=== PATIENT | male | born 1950 | race Caucasian/White ===

== ENCOUNTER 2019-04-20 16:33 | Outpatient (CLI) | payer MEDICARE, SELFPAY ==
[2019-04-20 17:22] LABS: Basophils Percent Auto 0.8 % (0.2-1.2); Eosinophils Absolute Auto 0.2 K/mm3 (0-0.3); Eosinophils Percent Auto 3.1 % (0-4.4); Hematocrit 42.4 % (42.0-52.0); Hemoglobin 14.7 g/dL (14.0-18.0); Immature Granulocyte Absolute 0.02 K/mm3 (0.00-0.031); Immature Granulocyte Percent A 0.4 % (0-0.5); Lymphocytes Absolute Auto 1.54 K/mm3 (0.9-3.2); Lymphocytes Percent Auto 32.2 % (18.3-44.2); Mean Corpuscular HGB Conc 34.7 g/dl (32-36); Mean Corpuscular Hemoglobin 32.2 pg (26-34); Mean Corpuscular Volume 92.8 fl (80-100); Mean Platelet Volume 10.8 fl (7.4-10.4); Monocytes Absolute Auto 0.5 K/mm3 (0.1-0.6); Monocytes Percent Auto 10.4 % (2.6-8.5); Neutrophils Absolute Auto 2.5 K/mm3 (1.3-6.7); Neutrophils Percent Auto 53.1 % (45.5-73.1); Platelet Count Result 230 k/mm3 (150-375); Red Blood Count 4.57 M/mm3 (4.6-6.20); Red Cell Distribution Width 11.9 % (11.5-14.5); White Blood Count 4.8 K/mm3 (4.5-10.0)
[2019-04-20 17:31] LABS: Blood Urea Nitrogen 27 mg/dL (9-20); Calcium 9.1 mg/dL (8.4-10.2); Carbon Dioxide 30 mmol/L (22-30); Chloride 98 mmol/L (98-107); Estimated Glomerular Filt Rate 36; Glucose 112 mg/dL (75-110); Potassium 3.4 mmol/L (3.4-5.0); Sodium 136 mmol/L (137-145)
== END 2019-04-20 16:34 | disposition home or self-care (01) ==
PROVIDERS: PCP Family Medicine Adolescent Medicine; Visit Provider Internal Medicine Cardiovascular Disease
DX: Z01.818 Encounter for other preprocedural examination (principal)
CPT/HCPCS: 36415; 80048; 85025

== ENCOUNTER 2019-04-29 05:09 | Day surgery (SDC) | payer MEDICARE, SELFPAY ==
[2019-04-28 14:32] VITALS: BMI 32.8
[2019-04-29] VITALS (8 sets, daily range): BP systolic 114–157; BP diastolic 67–91; PULSE 63–82; RESP 14–18; TEMP 36.6–37; O2SAT 94–99
[2019-04-29 07:21] LABS: Basophils Absolute Auto 0.1 K/mm3 (0.0-0.1); Basophils Percent Auto 1.1 % (0.2-1.2); Eosinophils Absolute Auto 0.2 K/mm3 (0-0.3); Eosinophils Percent Auto 3.3 % (0-4.4); Hematocrit 45.8 % (42.0-52.0); Hemoglobin 15.9 g/dL (14.0-18.0); Immature Granulocyte Absolute 0.02 K/mm3 (0.00-0.031); Immature Granulocyte Percent A 0.4 % (0-0.5); Lymphocytes Absolute Auto 1.17 K/mm3 (0.9-3.2); Mean Corpuscular HGB Conc 34.7 g/dl (32-36); Mean Corpuscular Volume 92.2 fl (80-100); Mean Platelet Volume 10.9 fl (7.4-10.4); Monocytes Absolute Auto 0.5 K/mm3 (0.1-0.6); Monocytes Percent Auto 10.2 % (2.6-8.5); Neutrophils Absolute Auto 2.7 K/mm3 (1.3-6.7); Platelet Count Result 235 k/mm3 (150-375); Red Blood Count 4.97 M/mm3 (4.6-6.20); Red Cell Distribution Width 11.9 % (11.5-14.5); White Blood Count 4.5 K/mm3 (4.5-10.0)
[2019-04-29 07:33] LABS: Blood Urea Nitrogen 26 mg/dL (9-20); Calcium 9.5 mg/dL (8.4-10.2); Carbon Dioxide 30 mmol/L (22-30); Chloride 97 mmol/L (98-107); Estimated CRCL calculation 54 ml/min; Estimated Glomerular Filt Rate 43; Glucose 126 mg/dL (75-110); Potassium 3.5 mmol/L (3.4-5.0); Sodium 140 mmol/L (137-145)
--- NOTE | 2019-04-29 08:17 | P.SEDATION_ITS ---
Moderate Sedation Note-Pt Data Patient Data Allergies Allergy/AdvReac Type Severity Reaction Status Date / Time No Known Allergies Allergy Unverified 02/23/19 15:10 Current Medications: Active Medications Sodium Chloride (Normal Saline Iv) 500 mls @ 125 mls/hr IV CONT .[facility] Sedation/Anesthesia: No previous sedation/anesthesia problems (including family history). [facility] Family History Family History Mother Diabetes mellitus Father Family history of malignant neoplasm Social History Social History Smoking status: Never smoker Alcohol intake: current Mod Sed Physical Exam Physical Exam Pre Procedural Exam: Normal: Appearance, Eyes, Ears, Nose, Neck, Throat, Airway, Lungs, Heart Size, Heart Rate, Heart Rhythm, Neuro Exam, Abdomen, Liver, Kidneys, Spleen, Breasts, Genitalia, Extremities and Skin Hours since solid foods: 8 Hours since liquid intake: 8 Internal Medicine - PN: Obj Da Vital Signs Vital Signs: Vital Signs - 24 hr 04/29/19 07:23 Temperature 37.0 C Pulse Rate 76 Respiratory Rate 18 Blood Pressure 157/91 H Pulse Oximetry 96 Meds/Results Medications: Active Medications Generic Name Dose Route Start Last Admin Trade Name Freq PRN Reason Stop Dose Admin Sodium Chloride 500 mls @ 125 mls/hr 04/29/19 06:00 Normal Saline Iv IV CONT .[facility] Labs CBC & Chem 7: 04/29/19 07:14 04/29/19 07:14 Labs: Laboratory Results - last 24 hr 04/29/19 04/29/19 07:14 07:14 WBC 4.5 RBC 4.97 Hgb 15.9 Hct 45.8 MCV 92.2 MCH 32.0 MCHC 34.7 RDW 11.9 Plt Count 235 MPV 10.9 H Immature Gran % (Auto) 0.4 Neut % (Auto) 59.0 Lymph % (Auto) 26.0 Reynolds % (Auto) 10.2 H Eos % (Auto) 3.3 Baso % (Auto) 1.1 Lymph # (Auto) 1.17 Reynolds # (Auto) 0.5 Eos # (Auto) 0.2 Baso # (Auto) 0.1 Abs Immat Gran (auto) 0.02 Absolute Neuts (auto) 2.7 Absolute Nucleated RBC 0.0 Nucleated RBC % 0.0 Sodium 140 Potassium 3.5 Chloride 97 L Carbon Dioxide 30 BUN 26 H Creatinine 1.60 H Estim Creat Clear Calc 54 Estimated GFR 43 L Glucose 126 H Calcium 9.5 ASA Classification/Sedation ASA Classification/Sedation ASA Class: I Emergent: No Risks: Risks, benefits and alternatives explained and patient/family accepted plan for sedation. Patient re-evaluated immediately prior to sedation.
--- NOTE | 2019-04-29 08:17 | WPDHPUPDATE1 ---
History and Physical Update Update Date/Time: 04/29/19 08:17 History and Physical has been reviewed, including an updated exam of the patient. There are NO changes in the patient's condition. Risks, benefits, and alternatives have been discussed and questions answered. Patient agrees to proceed with procedure.
--- NOTE | 2019-04-29 08:17 | WPDCARDPROC ---
Cardiac Cath Procedure Note Date of procedure:: 04/29/19 Performing physician:: Billie Ramirez MD Date of service 04/29/2019 Indication:: Abnormal stress test Brief clinical history:: This is 68 years old male patient who has been increasing Dizziness, dyspnea on exertion. Underwent stress echocardiogram shows basal inferior wall hypokinesis and equivocal EKG changes. Procedure Procedure performed:: 1-Moderate sedation that started at 8:40 a.m. and ended at 8:55 a.m. with total duration 15 minutes using 3mg of Versed and 75 mcg fentanyl. The registered nurse was Mimi Guerra. 2-Selective left and right coronary angiogram. 3-Left heart catheterization with measurement of LVEDP and measurement of gradient across aortic valve. 4-Right common femoral arterial angiogram. 5-Deployment of 6 [place] Angio-Seal. Sedation/Medication given:: Moderate sedation. Access site:: Right common femoral artery. Estimated blood loss:: 10cc Procedure note:: After informed consent patient was brought in to nursery laborer with the was draped and prepped in usual manner. Moderate sedation was given and the right groin was infiltrated using 1% lidocaine. Five [place] sheath was obtained using micropuncture needle and the modified Seldinger technique. Selective left coronary angiogram was done using JL4 catheter with the tip of the catheter placed in the left main coronary artery. Selective right coronary angiogram was done using JR4 catheter with the tip of the catheter placed to the right coronary artery. After that 5 [place] pigtail catheter was advanced across the aortic valve into the left ventricle with measurement of LVEDP and measurement of gradient across aortic valve. Right common femoral arterial angiogram was done. Findings:: 1- left coronary artery is a large artery that divides into large LAD, large circumflex artery. Left main is Is free of disease. 2- left anterior descending artery is a large artery that runs and wraps around the apex. has minimal irregularities. It gives rise to a medium size diagonal 1 branch the looks unremarkable small diagonal 2 branch that looks unremarkable. 3- left circumflex artery is a large artery And codominant and free of disease. Gives small OM 1 branch and small OM2 branches that looked unremarkable. Left PDA is medium in size and looks free of disease. 4- right coronary artery is Large artery a codominant with minimal irregularities. 5- LVEDP was 10 mm Hgand no gradient across aortic valve. 6- opening arterial pressure was 107/57and closing pressure was 118/51. 7- right femoral artery angiogram shows no significant disease in the right common femoral artery. Conclusion:: 1- false-positive stress test. 2- minimal coronary irregularities. Assessment and Plan Additional Plan continue aggressive risk factor modification for CAD.
--- NOTE | 2019-04-29 09:10 | SUR.PHASEII ---
0910-pt has returned from the CCL after an LHC. Zahra distress noted. Angioseal in place. Groin soft and non-tender, no evidence of bleeding or hematoma noted. Moderate right pedal pulse noted. Will continue to monitor.
--- NOTE | 2019-04-29 12:00 | SUR.PHASEII ---
1200-pt given D/C orders and instructions. Questions answered and verbalized understanding. D/C orders signed. AOx4. Groin soft and non-tender, no evidence of bleeding or hematoma noted. Moderate right pedal pulse noted. Taken via wheelchair to waiting vehicle. No distress noted or verbalized at time of departure.
== END 2019-04-29 12:00 | disposition home or self-care (01) ==
PROVIDERS: PCP Family Medicine Adolescent Medicine; Visit Provider Internal Medicine Cardiovascular Disease
PROC: 4A023N7 Measurement of Cardiac Sampling and Pressure, Left Heart, Percutaneous Approach (ICD-10-PCS; CPT 93452; principal; 2019-04-29 08:30)
DX: R94.39 Abnormal result of other cardiovascular function study (principal); R42 Dizziness and giddiness; R06.09 Other forms of dyspnea; I10 Essential (primary) hypertension; E78.5 Hyperlipidemia, unspecified
CPT/HCPCS: 36415; 80048; 85025; 93458; C1760; C1769; C1887; C1894; G0269; J1644; J2250; J3010; J7040

== ENCOUNTER → 2019-12-29 13:41 | Outpatient (CLI) | payer MEDICARE, SELFPAY ==
--- NOTE | ~2019-12-29 | XR_ITS ---
EXAMINATION: XR foot LT min 3V DATE: 12/29/2019 14:53 INDICATION: Posttraumatic left great toe pain. TECHNIQUE: Dorsoplantar, two oblique and lateral views of the left foot were obtained. COMPARISON: None. FINDINGS: Alignment is normal. No fracture. Mild polyarticular osteoarthritis involving multiple joints at the left foot and ankle including the first metatarsophalangeal joint. Achilles and plantar calcaneal spu rs with few additional enthesopathic ossicles in the distal Achilles tendon. Osseous soft tissue swel ling at the dorsal aspect of the forefoot. The left ankle joint effusion. IMPRESSION: 1. Mild polyarticular osteoarthritis and chronic enthesopathic change at the posterior calcaneus. No acute osseous abnormality. Reviewed, dictated and finalized at location A. IMPRESSION: 1. Mild polyarticular osteoarthritis and chronic enthesopathic change at the po sterior calcaneus. No acute osseous abnormality.
== END ==
PROVIDERS: PCP Family Medicine Adolescent Medicine; Visit Provider Physician Assistant
DX: S99.922A Unspecified injury of left foot, initial encounter (principal); M19.072 Primary osteoarthritis, left ankle and foot
CPT/HCPCS: 73630

== ENCOUNTER → 2020-08-25 12:53 | Outpatient (CLI) | payer MEDICARE, SELFPAY ==
--- NOTE | ~2020-08-25 | MR_ITS ---
EXAMINATION: MR brain/brain stem wo con DATE: 08/25/2020 13:40 INDICATION: Headache and dizziness. TECHNIQUE: Magnetic resonance imaging (MRI) of the brain and brainstem was performed without intraven ous contrast. Sequences included sagittal and axial T1-weighted FSE, axial diffusion-weighted FS EPI, axial T2*-weighted GRE, axial T2-weighted FLAIR Propeller, and axial T2-weighted Propeller. Apparent diffusion coefficient (ADC) maps were created. COMPARISON: None. FINDINGS: There is no intracranial hemorrhage, acute infarction, or abnormal intracranial mass lesion . There are scattered areas of nonspecific increased T2-weighted signal intensity in the cerebral whi te matter, which is within normal limits for the patient's age. The ventricles are normal in size. Th ere is mucosal thickening in the paranasal sinuses. There are likely changes of ocular lens replaceme nt surgeries. The mastoid air cells are normal. IMPRESSION: 1. Normal aging brain. Reviewed, dictated and finalized at location A. IMPRESSION: 1. Normal aging brain.
== END ==
PROVIDERS: PCP Family Medicine Adolescent Medicine; Visit Provider Physician Assistant
DX: R51.9 Headache, unspecified (principal); R42 Dizziness and giddiness
CPT/HCPCS: 70551

== ENCOUNTER → 2021-08-10 09:09 | Outpatient (CLI) | payer MEDICARE, SELFPAY ==
--- NOTE | ~2021-08-10 | XR_ITS ---
EXAMINATION: XR_CERV2-3V_CR DATE: 08/10/2021 09:53 INDICATION: Cervical radiculopathy. TECHNIQUE: 4 views of cervical spine including standing views were obtained. COMPARISON: None. FINDINGS: There is 5 degrees levocurvature of cervical spine. Vertebral body heights are normal. Ther e is moderately decreased disc height at C6-C7 with endplate remodeling. At C6-C7, there is severe bi lateral uncovertebral joint osteoarthritis. There is multilevel mild facet joint osteoarthritis. Ther e is mild central canal stenosis at C6-C7. No prevertebral soft tissue swelling. IMPRESSION: 1. Moderate cervical spondylosis. Reviewed, dictated and finalized at location A.
--- NOTE | ~2021-08-10 | XR_ITS ---
XR shoulder RT min 2V 08/10/2021 09:53 Indication: Right shoulder pain Procedure: 4 views right shoulder Comparison: No prior studies for comparison. Findings: There is osteoarthritis of the acromioclavicular joint and to a lesser degree glenohumeral joint. No fracture or traumatic malalignment. No significant soft tissue abnormality. There is right basilar atelectasis/scarring. No foreign bodies. Impression: 1: Polyarticular osteoarthritis of the right shoulder. Reviewed, dictated and finalized at location B. Impression: 1: Polyarticular osteoarthritis of the right shoulder.
== END ==
PROVIDERS: PCP Family Medicine Adolescent Medicine; Visit Provider Family Medicine Adolescent Medicine
DX: M54.12 Radiculopathy, cervical region (principal); M25.511 Pain in right shoulder; M43.02 Spondylolysis, cervical region; M19.011 Primary osteoarthritis, right shoulder
CPT/HCPCS: 72040; 73030

== ENCOUNTER 2021-12-17 08:33 | Outpatient (CLI) | payer MEDICARE, SELFPAY ==
--- NOTE | 2021-12-17 08:30 | ECG_ITS ---
Measurements Intervals [place] Rate: 68 P: 32 HI: 213 QRS: -22 QRSD: 106 T: 31 QT: 382 QTc: 408 Interpretive Statements SINUS RHYTHM WITH FIRST DEGREE AV BLOCK EARLY PRECORDIAL R/S TRANSITION BASELINE ARTIFACT- I, II, III, AVR, AVL, AVF BORDERLINE ECG COMPARED TO ECG 11/17/2018 08:36:34 NO SIGNIFICANT CHANGES Electronically Signed On 12-17-2021 9:05:06 CDT by Lui Ortiz D.O.
== END 2021-12-17 08:34 | disposition home or self-care (01) ==
LOC: ANHSURGERY 08:42
PROVIDERS: PCP Family Medicine Adolescent Medicine; Visit Provider Orthopaedic Surgery
DX: Z01.810 Encounter for preprocedural cardiovascular examination (principal); I10 Essential (primary) hypertension; I44.0 Atrioventricular block, first degree
CPT/HCPCS: 93005

== ENCOUNTER 2021-12-19 00:23 | Day surgery (SDC) | payer MEDICARE, SELFPAY ==
--- NOTE | 2021-12-13 13:01 | PC.NURSE ---
Report to the Outpatient Waiting Room, entrance under the green pavilion located off [facility], at time _0600 on date ___12/19/21____. OR Time: __729 . Time changes happen often and if your time is changed the preop area will call you the afternoon before. - You and your visitor will be asked to self-screen and do not enter if you have any COVID symptoms. - Only one visitor and NO children visitors are allowed at this time. - The patient visitor is requested to leave or wait in car when not with patient due to restrictions. - A mask is required within the hospital. Patients may have clear liquids (water, carbonated beverages, clear teas, apple juice) until 3 hours prior to surgery with a maximum of 20 ounces. - No food from midnight until time of surgery - Infants may have breast milk until 4 hours before surgery, formula 6 hours prior to surgery. - Children will be allowed to drink immediately following surgery. If applicable, please bring a bottle or sippy cup to assist with drinking. Juice, water, soda, and popsicles are readily available. For infants on formula, please bring formula the day of surgery. Pacifiers are allowed. Take the following medications with a SIP of water the morning of surgery: AMLODIPINE Medications to discontinue per physician NONE Date to take last dose Please no make-up, nail portuguese, hairspray, perfume, deodorant, or body powder the day of surgery. No jewelry (including any body piercings) or valuables the day of surgery, leave them at home. Please take a shower or bath the night before, or the morning of, surgery with an antibacterial soap. Wear comfortable, loose fitting clothing. Children are encouraged to wear pajamas. - Jewelry must be removed prior to entering the operating room. Rings and piercings that are not removed may be cut off. - The hospital will not accept responsibility for valuables. - Please leave all valuables, including medications, at home the day of surgery. If you are going home after surgery, a licensed route driver salesperson must drive you home. - NO public transportation without another adult. - We recommend that an adult stay with you for 24 hours following discharge. - We also recommend that you do not drive, make important decision, drink alcoholic beverages, or take any drugs that were not prescribed by your health care provider for at least 24 hours after your discharge time. For Pediatric surgeries, we recommend two adults accompany the child home (only one inside the building at this time). Follow any additional instructions given to you from your surgeon. If you or anyone in your household have experienced Covid symptoms in the past week, please notify your surgeon or the nurse liaison at the phone number below for possible testing. Telephone instructions given to ___PATIENT and asked if any additional questions and then verbalized understanding. Patient advised to call surgeon office or pre surgery nurse liaison [phone] if any additional questions.
[2021-12-13 13:08] VITALS: BMI 31.4
--- NOTE | 2021-12-17 11:30 | PM.IMHP ---
H&P: HPI History of Present Illness Date/Time: 12/17/21 11:30 Chief Complaint: the patient is a 71-year-old male who presents with right shoulder pain chronic in nature. Patient has severe aching pain worse with overhead activity reaching behind his back somewhat relieved by rest. A lot of the pain is in the subacromial space radiates into the deltoid but does not go below the elbow he has a positive impingement sign cannot do anything heavy repetitive. The patient has had problems since last January and worse recently with chopping wood and felt a snapping sensation in the shoulder that is causing significant pain. Patient did have oral prednisone and cortisone injection which gave him good relief for a while but his pain has returned. An MRI scan was obtained that shows a full-thickness rotator cuff tear not retracted. Patient does have significant AC joint hypertrophy with spurring subacromial narrowing and a 9.5 mm full-thickness non retracted tear at the edge of the supraspinatus tendon. Subscapularis infraspinatus and the teres minor are all grossly intact. There is also increased signal intensity within the inferior labral structures possible inferior labral tearing is noted. At this point the patient is aware the above findings he has discussed further treatment options in detail with Dr. Mcmanus and now would like to proceed with surgical intervention. Review of Systems Review of Systems: Ten point review of systems otherwise negative [facility] Past Medical History Medical History Benign hypertension with CKD (chronic kidney disease) stage III Chronic low back pain DJD (degenerative joint disease) Elevated fasting glucose Erectile dysfunction GERD (gastroesophageal reflux disease) IBS (irritable bowel syndrome) Osteoarthritis of hands, bilateral Pure hypercholesterolemia, unspecified Stage 3a chronic kidney disease (CKD) Surgical History Surgical History History of appendectomy History of cholecystectomy Family History Family History Mother Diabetes mellitus Father Family history of malignant neoplasm Social History Social History Smoking status: Never smoker Second hand tobacco smoke exposure: No Alcohol intake: never Substance use: never Substance use type: does not use Gender identity (if verbalized by the patient): Male Sexual Orientation (if Verbalized by the Patient): Straight or Heterosexual Spiritual care concerns: No Agree to blood products: Yes Meds Home Medications and Allergies Home Medications Medication Instructions Recorded Confirmed Type amlodipine 5 mg tablet 5 mg PO DAILY #90 tabs 05/07/21 12/13/21 Rx acetaminophen 650 mg 650 mg PO Q8H PRN Pain 05/23/21 12/13/21 History tablet,extended release (Tylenol Arthritis Pain) omeprazole 40 mg capsule,delayed 40 mg PO DAILY #90 caps 05/29/21 12/13/21 Rx release allopurinol 300 mg tablet 300 mg PO DAILY #90 tabs 06/17/21 12/13/21 Rx lisinopril 40 mg tablet 40 mg PO DAILY #90 tabs 08/07/21 12/13/21 Rx tadalafil 5 mg tablet 5 mg PO DAILY PRN bph #30 tabs 10/01/21 12/13/21 Rx fenofibrate 160 mg tablet 160 mg PO DAILY #90 tabs 10/22/21 12/13/21 Rx Allergies Allergy/AdvReac Type Severity Reaction Status Date / Time No Known Allergies Allergy Verified 12/13/21 12:45 Exam Narrative: on exam the patient is noted be a well-developed well-nourished male no acute distress alert oriented x3. Normal mood and affect. The patient is 6 ft 2 in tall 241 lb with a BMI of 30.9. Hearing and vision are intact. Respiratory is good no distress. Pulse regular rhythm. Abdomen benign. Extremities showed the patient's right shoulder to be painful with any manipulation range of motion. He has a positive impingement sig
--- NOTE | 2021-12-18 15:38 | WPDANESEPPF ---
Anes - Initial Pre Proc Eval Procedure: Operation Date: 12/19/21 07:30 Proposed Procedures p Right Shoulder Arthroscopy, Acromioplasty, Open Distal Clavicle Excision, Rotator Cuff Repair, Proceed as Indicated - Alejandro Mcmanus MD Date/Time: 12/18/21 15:38 Surgeon: Alejandro Mcmanus MD Pre Op Diagnosis: rotator cuff tear right shoulder Patient Data Age: 71 Gender: M Height: 1.88 m Weight: 111.15 kg Allergies Allergy/AdvReac Type Severity Reaction Status Date / Time No Known Allergies Allergy Verified 12/19/21 06:04 Home Medications Medication Instructions Recorded Confirmed Type amlodipine 5 mg tablet 5 mg PO DAILY #90 tabs 05/07/21 12/19/21 Rx acetaminophen 650 mg 650 mg PO Q8H PRN Pain 05/23/21 12/13/21 History tablet,extended release (Tylenol Arthritis Pain) omeprazole 40 mg capsule,delayed 40 mg PO DAILY #90 caps 05/29/21 12/13/21 Rx release allopurinol 300 mg tablet 300 mg PO DAILY #90 tabs 06/17/21 12/13/21 Rx lisinopril 40 mg tablet 40 mg PO DAILY #90 tabs 08/07/21 12/13/21 Rx tadalafil 5 mg tablet 5 mg PO DAILY PRN bph #30 tabs 10/01/21 12/13/21 Rx fenofibrate 160 mg tablet 160 mg PO DAILY #90 tabs 10/22/21 12/13/21 Rx Patient hx anesthesia problems: none Family hx anesthesia problems: none Results Review: All pre-operative results and documents have been reviewed as part of the pre-operative evaluation. [facility] Past Medical History Medical History (Updated 12/18/21 @ 15:39 by Se Gongora MD) Benign hypertension with CKD (chronic kidney disease) stage III Chronic low back pain DJD (degenerative joint disease) Elevated fasting glucose Erectile dysfunction GERD (gastroesophageal reflux disease) IBS (irritable bowel syndrome) Mild cognitive impairment Osteoarthritis of hands, bilateral Pure hypercholesterolemia, unspecified Stage 3a chronic kidney disease (CKD) Surgical History Surgical History History of appendectomy History of cholecystectomy Family History Family History Mother Diabetes mellitus Father Family history of malignant neoplasm Social History Social History Smoking status: Never smoker Second hand tobacco smoke exposure: No Alcohol intake: never Substance use: never Substance use type: does not use Living arrangements: with family Gender identity (if verbalized by the patient): Male Sexual Orientation (if Verbalized by the Patient): Straight or Heterosexual Spiritual care concerns: No Agree to blood products: Yes Anes - Eval Final PreProcedure Day of Procedure 12/18/21 15:38 Patient weight: obese Heart: regular rate and rhythm Lungs: clear to auscultation and normal air movement Airway: Mallampati scale class II Neurological: alert and oriented Last oral intake: >/= 8 hours ASA classification: III Emergent: no Anesthetic plan: proceed Anesthesia type and monitoring: general ETT Results Review: All pre-operative results and documents have been reviewed as part of the pre-operative evaluation. Informed Consent: The patient's anesthetic plan and its attendant risks and benefits were discussed with the patient/family/POA. Questions were solicited and answers provided to the satisfaction of the patient/family/POA.
--- NOTE | 2021-12-18 15:39 | WPDANESPNB ---
Anes - Peripheral Nerve Block Date/Time: 12/18/21 15:39 I have discussed with the patient/family/POA the placement of a peripheral nerve block for post-operative pain management, including associated risks, benefits, complications, and side effects. Alternative methods of post-operative analgesia were detailed. Questions were solicited and answers provided to the satisfaction of the patient/family/POA. Time-Out: A pre-procedural Time-Out was completed immediately before starting the procedure and confirmed: Patient Identification, Site, Procedure, Patient Position and the Availability of Requisite Equipment. Clinical Indications: Acute post-operative pain management requested by the operative surgeon. Nerve Block Insertion Note Anes-nerve block: supraclavicular right Patient position: supine Skin prep: chlorhexidine Needle: 22 gauge, stimulating, insulated echogenic needle. Needle length: 80 mm Technique: ultrasound (in plane) Injectate: bupivacaine 0.5% with epi 5 mcg/ml (20cc) Observations: tolerated well Complications: none Procedure start time:: 720 Procedure end time:: 725
[2021-12-19] VITALS (9 sets, daily range): BP systolic 113–155; BP diastolic 52–83; PULSE 62–87; RESP 12–20; TEMP 36.9–37.2; O2SAT 94–98
[2021-12-19] MEDS: ACETAMINOPHEN 500 MG TABLET 1000 MG PO (06:05)
[2021-12-19] MEDS: KETOROLAC 15 MG/ML VIAL (*BKC) IV PUSH (06:41)
[2021-12-19] MEDS: LACTATED RINGERS 1,000 ML 30 ML IV CONT (06:41)
--- NOTE | 2021-12-19 06:58 | WPDHPUPDATE1 ---
History and Physical Update Update Date/Time: 12/19/21 06:58 History and Physical has been reviewed, including an updated exam of the patient. There are NO changes in the patient's condition. Risks, benefits, and alternatives have been discussed and questions answered. Patient agrees to proceed with procedure.
[2021-12-19] MEDS: ceFAZolin 2 GM/D5W 50 ML 2 GM/50 ML BAG IVPB (07:33)
[2021-12-19] MEDS: LIDO 1%/EPINEPHRINE 1:100,000 10 ML VIAL 30 ML INFILTRATE (08:07)
--- NOTE | 2021-12-19 08:47 | P.OP_ITS ---
Procedure Note - Detailed Date of Procedure 12/19/21 Pre-op Diagnosis rotator cuff tear right shoulder A/C Joint arthrosis Post-op Diagnosis Same Procedure Performed Rotator cuff repair, distal clavicle excision Surgeon Alejandro Mcmanus MD Spanish Professor Mike Pardo Anesthesia General Indications Pain, tear and failure of conservative treatment Description of Procedure Arthroscopy shoulder with acromioplasty open distal clavicle exicision. Rotator cuff debridement and repair. Estimated Blood Loss 50 Drains No Packing No Pathology None sent Complications No immediate complications Condition Stable Disposition PACU
--- NOTE | 2021-12-19 09:29 | PM.OP ---
Procedure Note - Brief Procedure Note - Brief Date of procedure: 12/19/21 Pre-op diagnosis: rotator cuff tear right shoulder Impingement syndrome, AC joint arthrosis, rotator cuff tear right shoulder Procedure performed: right shoulder arthroscopy acromioplasty open distal clavicle excision and rotator cuff tendon repair right shoulder Description of procedure: I entered the operating room at 7:45 a.m. to assist with transferring the patient to the operating table and positioned the patient properly on the beach chair apparatus in preparation for the shoulder surgery. Once the patient was positioned I then also draped the patient in a sterile fashion once the patient had been sterilely prepped by the OR staff. Arthroscopy equipment was set up Dr. Mcmanus entered the room I then assisted him with positioning of the arm during the surgical procedure, I held and positioned the arthroscope during the arthroscopic procedure while Dr. Mcmanus utilized the arthroscopic shaver, once that was complete and the shoulder was converted to the open procedure by Dr. Mcmanus I assisted with wound retraction and hemostasis with suction and cautery. once the surgical procedure was completed I then obtained hemostasis with cautery, closed the layers of the skin with 2-0 Vicryl followed by lori superficially. I applied a sterile gauze dressing and applied a shoulder sling to the right arm. I then assisted with transfer the patient to the stretcher for transport back to the recovery room. Patient tolerated procedure well no complications are noted. Total blood loss was less than 50 cc. Patient is to be discharged to home today Surgeon: Alejandro Mcmanus MD 1st apartment community assistant manager-Miek Pardo, PAC
[2021-12-19] MEDS: oxyCODONE HCL (*CRX) 5 MG TAB IR PO (10:30)
== END 2021-12-19 11:15 | disposition home or self-care (01) ==
PROVIDERS: PCP Family Medicine Adolescent Medicine; Visit Provider Orthopaedic Surgery
PROC: (CPT 29805; principal; 2021-12-19 07:30)
DX: M75.101 Unspecified rotator cuff tear or rupture of right shoulder, not specified as traumatic (principal); M19.011 Primary osteoarthritis, right shoulder; G89.18 Other acute postprocedural pain; I12.9 Hypertensive chronic kidney disease with stage 1 through stage 4 chronic kidney disease, or unspecified chronic kidney disease; N18.31 Chronic kidney disease, stage 3a; E78.00 Pure hypercholesterolemia, unspecified; K21.9 Gastro-esophageal reflux disease without esophagitis; K58.9 Irritable bowel syndrome, unspecified; G31.84 Mild cognitive impairment of uncertain or unknown etiology; E66.9 Obesity, unspecified; Z68.31 Body mass index [BMI] 31.0-31.9, adult
CPT/HCPCS: 29827; 23120; 64415; 93005; A4565; A9270; J0330; J0690; J1100; J1885; J2250; J2405; J2704; J3010; J7120

== ENCOUNTER 2022-08-05 13:25 | Outpatient (CLI) | payer MEDICARE, SELFPAY ==
[2022-08-05 14:38] LABS: Prothrombin Time 14.1 Seconds (11.1-14.7)
[2022-08-05 14:39] LABS: Partial Thromboplastin Time 29.5 SECONDS (22.3-36.8)
[2022-08-05 14:41] LABS: Anion Gap 8 mmol/L (8-16); Blood Urea Nitrogen 19 mg/dL (9-20); Calcium 8.7 mg/dL (8.4-10.2); Carbon Dioxide 29 mmol/L (22-30); Chloride 102 mmol/L (98-107); Estimated Glomerular Filt Rate 60; Glucose 142 mg/dL (65-110); Potassium 3.6 mmol/L (3.4-5.0); Sodium 139 mmol/L (137-145)
== END 2022-08-05 13:26 | disposition home or self-care (01) ==
PROVIDERS: Anesthesiology; PCP Family Medicine Adolescent Medicine; Visit Provider Orthopaedic Surgery
DX: N18.31 Chronic kidney disease, stage 3a (principal); Z01.818 Encounter for other preprocedural examination
CPT/HCPCS: 36415; 80048; 85610; 85730

== ENCOUNTER 2022-08-07 00:22 | Day surgery (SDC) | payer MEDICARE, SELFPAY ==
--- NOTE | 2022-08-02 14:28 | PM.IMHP ---
H&P: HPI History of Present Illness Date/Time: 08/02/22 14:28 Chief Complaint: the patient is a 72-year-old male who sees Dr. Mcmanus regarding his right shoulder. Patient has a chronic ongoing history of pain and weakness particularly with trying to do things heavy repetitively has a hard time lifting his arm over his head. The pain radiates into the upper arm worse with activities and relieved by rest. Patient's pain has been persistent in nature and is symptomatic despite conservative measures including cortisone therapy and anti-inflammatories. The patient did have an MRI scan the right shoulder which shows multiple foci of metallic artifact present from previous surgical intervention. There is a supraspinatus tendon insertion tear which appears to be nearly full-thickness the gap measuring 9 mm AP by 13 mm. The labrum is intact. The long head of the biceps is also intact and in the bicipital groove. There is significant AC joint hypertrophy and degenerative changes subacromial space appears to be maintained there is a trace of glenohumeral effusion and fluid in the subacromial space. At this point the patient is aware of the findings and discuss further treatment options in detail with Dr. Mcmanus he would now like to proceed with surgical intervention. Review of Systems Review of Systems: Ten point review of systems otherwise negative [facility] Past Medical History Medical History Benign hypertension with CKD (chronic kidney disease) stage III Chronic low back pain Elevated fasting glucose Erectile dysfunction GERD (gastroesophageal reflux disease) IBS (irritable bowel syndrome) Mild cognitive impairment Osteoarthritis of hands, bilateral Pure hypercholesterolemia, unspecified Stage 3a chronic kidney disease (CKD) Surgical History Surgical History History of appendectomy (~1973) History of arthroscopy of left shoulder (2014) Rotator cuff repair, biceps tenotomy History of carpal tunnel surgery of right wrist (2009) History of cholecystectomy (10/2018) Family History Family History Mother Diabetes mellitus Father Family history of malignant neoplasm Social History Social History Smoking status: Never smoker Second hand tobacco smoke exposure: No Alcohol intake: never Substance use: never Substance use type: does not use Living arrangements: with family Occupation/Education: retired Gender identity (if verbalized by the patient): Male Sexual Orientation (if Verbalized by the Patient): Straight or Heterosexual Spiritual care concerns: No Agree to blood products: Yes Meds Home Medications and Allergies Home Medications Medication Instructions Recorded Confirmed Type acetaminophen 650 mg 650 mg PO Q8H PRN Pain 05/23/21 05/21/22 History tablet,extended release (Tylenol Arthritis Pain) lisinopril 40 mg tablet 40 mg PO DAILY #90 tabs 08/07/21 05/21/22 Rx tadalafil 5 mg tablet 5 mg PO DAILY PRN bph #30 tabs 04/26/22 05/21/22 Rx omeprazole 40 mg capsule,delayed 40 mg PO DAILY #90 caps 06/04/22 Rx release allopurinol 300 mg tablet See Rx Instructions .Route 06/24/22 Rx .COMPLEX #90 tabs amlodipine 5 mg tablet See Rx Instructions .Route 07/15/22 Rx .COMPLEX #90 tabs fenofibrate 160 mg tablet 160 mg PO DAILY #90 tabs 07/22/22 Rx Allergies Allergy/AdvReac Type Severity Reaction Status Date / Time No Known Allergies Allergy Verified 05/21/22 11:26 Exam Narrative: on exam the patient is known to be a well-developed well-nourished female no acute distress alert oriented x3. Normal mood and affect. The patient is for 6 ft 2 in tall 250 lb BMI 32.1. Hearing and vision are intact with glasses. Respiratory clear of this. Pulse regular rate and rh
[2022-08-05 10:12] VITALS: BMI 32.2
--- NOTE | 2022-08-05 10:35 | PC.NURSE ---
Report to the Outpatient Waiting Room, entrance under the green pavilion located off [facility], at time __6:00AM on date __08/07/22 . Planned Procedure Time: _7:30AM . Time changes happen often and if your time is changed the preop area will call you the afternoon before. - You and your visitor will be asked to self-screen and do not enter if you have any COVID symptoms. - A mask is optional within the hospital at this time. Patients may have clear liquids (water, carbonated beverages, clear teas, apple juice) until 3 hours prior to surgery with a maximum of 20 ounces. - No food from midnight until time of surgery Take the following medications with a SIP of water the morning of surgery: __AMLODIPINE DO NOT STOP ANY OF YOUR OTHER PRESCRIPTION MEDICATIONS PRIOR TO SURGERY ?EXCEPT THE FOLLOWING Medications to discontinue per physician ___NONE Date to take last dose Please no make-up, nail hebrew, hairspray, perfume, deodorant, or body powder the day of surgery. No jewelry (including any body piercings) or valuables the day of surgery, leave them at home. Please take a shower or bath the night before, or the morning of, surgery with an antibacterial soap. Wear comfortable, loose fitting clothing. Children are encouraged to wear pajamas. - Jewelry must be removed prior to entering the operating room. Rings and piercings that are not removed may be cut off. - The hospital will not accept responsibility for valuables. - Please leave all valuables, including medications, at home the day of surgery. If you are going home after surgery, a licensed grain combine driver must drive you home. - NO public transportation without another adult if you receive anesthesia. - We recommend that an adult stay with you for 24 hours following discharge. - We also recommend that you do not drive, make important decision, drink alcoholic beverages, or take any drugs that were not prescribed by your health care provider for at least 24 hours after your discharge time. Follow any additional instructions given to you from your surgeon. If you or anyone in your household have experienced Covid symptoms in the past week, please notify your surgeon or the nurse liaison at the phone number below for possible testing. Telephone instructions given to __PATIENT and asked if any additional questions and then verbalized understanding. Patient advised to call surgeon office or pre surgery nurse liaison [phone] if any additional questions.
--- NOTE | 2022-08-06 13:59 | WPDANESEPPF ---
Anes - Initial Pre Proc Eval Procedure: Operation Date: 08/07/22 07:30 Proposed Procedures p Right Shoulder Arthroscopy, Acromioplasty, Open Distal Clavicle Excision, Rotator Cuff Repair, Proceed as Indicated - Alejandro Mcmanus MD Date/Time: 08/06/22 13:59 Surgeon: Alejandro Mcmanus MD Pre Op Diagnosis: Rot Cuff Tear Rt Shoulder Patient Data Age: 72 Gender: M Height: 1.88 m Weight: 114 kg Allergies Allergy/AdvReac Type Severity Reaction Status Date / Time No Known Allergies Allergy Verified 08/07/22 06:07 Home Medications Medication Instructions Recorded Confirmed Type acetaminophen 650 mg 1,300 mg PO Q8H PRN Pain 05/23/21 08/07/22 History tablet,extended release (Tylenol Arthritis Pain) fenofibrate 160 mg tablet 160 mg PO DAILY #90 tabs 07/22/22 08/07/22 Rx allopurinol 300 mg tablet 300 mg PO DAILY 08/05/22 08/07/22 History amlodipine 5 mg tablet 5 mg PO QAM 08/05/22 08/07/22 History lisinopril 40 mg tablet 40 mg PO QAM 08/05/22 08/07/22 History omeprazole 40 mg capsule,delayed 40 mg PO QAM 08/05/22 08/07/22 History release tadalafil 5 mg tablet 5 mg PO DAILY bph 08/05/22 08/05/22 History Patient hx anesthesia problems: none Family hx anesthesia problems: none Results Review: All pre-operative results and documents have been reviewed as part of the pre-operative evaluation. [facility] Past Medical History Medical History (Updated 08/06/22 @ 14:00 by Se Gongora MD) Benign hypertension with CKD (chronic kidney disease) stage III Chronic low back pain Elevated fasting glucose Erectile dysfunction GERD (gastroesophageal reflux disease) IBS (irritable bowel syndrome) Mild cognitive impairment Osteoarthritis of hands, bilateral Osteoarthritis of right acromioclavicular joint Pure hypercholesterolemia, unspecified Stage 3a chronic kidney disease (CKD) Unspecified rotator cuff tear or rupture of right shoulder, not specified as traumatic Surgical History Surgical History History of appendectomy (~1973) History of arthroscopy of left shoulder (2014) Rotator cuff repair, biceps tenotomy History of carpal tunnel surgery of right wrist (2009) History of cholecystectomy (10/2018) Family History Family History Mother Diabetes mellitus Father Family history of malignant neoplasm Social History Social History Smoking status: Never smoker Second hand tobacco smoke exposure: No Alcohol intake: never Substance use: never Substance use type: does not use Living arrangements: with family Additional living arrangements comments: Occupation/Education: retired Gender identity (if verbalized by the patient): Male Sexual Orientation (if Verbalized by the Patient): Straight or Heterosexual Spiritual care concerns: No Agree to blood products: Yes Anes - Eval Final PreProcedure Day of Procedure 08/06/22 13:59 Patient weight: obese Heart: regular rate and rhythm Lungs: clear to auscultation and normal air movement Airway: Mallampati scale class II Neurological: alert and oriented Last oral intake: >/= 8 hours ASA classification: III Emergent: no Anesthetic plan: proceed Anesthesia type and monitoring: general ETT Results Review: All pre-operative results and documents have been reviewed as part of the pre-operative evaluation. Informed Consent: The patient's anesthetic plan and its attendant risks and benefits were discussed with the patient/family/POA. Questions were solicited and answers provided to the satisfaction of the patient/family/POA.
--- NOTE | 2022-08-06 14:02 | WPDANESPNB ---
Anes - Peripheral Nerve Block Date/Time: 08/06/22 14:02 I have discussed with the patient/family/POA the placement of a peripheral nerve block for post-operative pain management, including associated risks, benefits, complications, and side effects. Alternative methods of post-operative analgesia were detailed. Questions were solicited and answers provided to the satisfaction of the patient/family/POA. Time-Out: A pre-procedural Time-Out was completed immediately before starting the procedure and confirmed: Patient Identification, Site, Procedure, Patient Position and the Availability of Requisite Equipment. Clinical Indications: Acute post-operative pain management requested by the operative surgeon. Nerve Block Insertion Note Anes-nerve block: supraclavicular right Patient position: supine Skin prep: chlorhexidine Needle: 22 gauge, stimulating, insulated echogenic needle. Needle length: 80 mm Technique: ultrasound (in plane) Injectate: bupivacaine 0.5% with epi 5 mcg/ml (20cc) Observations: tolerated well Complications: none Procedure start time:: 725 Procedure end time:: 730
[2022-08-07] VITALS (9 sets, daily range): BP systolic 126–161; BP diastolic 67–89; PULSE 64–96; RESP 14–20; TEMP 36.7–36.8; O2SAT 94–99
[2022-08-07] MEDS: ACETAMINOPHEN 500 MG TABLET 1000 MG PO (06:24)
[2022-08-07] MEDS: LACTATED RINGERS 1,000 ML 30 ML IV CONT (06:27)
[2022-08-07] MEDS: KETOROLAC 15 MG/ML VIAL (*BKC) IV PUSH (06:32)
--- NOTE | 2022-08-07 06:39 | WPDHPUPDATE1 ---
History and Physical Update Update Date/Time: 08/07/22 06:39 History and Physical has been reviewed, including an updated exam of the patient. There are NO changes in the patient's condition. Risks, benefits, and alternatives have been discussed and questions answered. Patient agrees to proceed with procedure.
[2022-08-07] MEDS: ceFAZolin 2 GM/D5W 50 ML 2 GM/50 ML BAG IVPB (07:30)
[2022-08-07] MEDS: LIDO 1%/EPINEPHRINE 1:100,000 50 ML VIAL INFILTRATE (08:22)
--- NOTE | 2022-08-07 08:46 | P.OP_ITS ---
Procedure Note - Detailed Date of Procedure 08/07/22 Pre-op Diagnosis Rot Cuff Tear Rt Shoulder Post-op Diagnosis Same Procedure Performed Rotator cuff repair Surgeon Alejandro Mcmanus MD Clinical Athletic Instructor Mike Pardo Anesthesia General Indications Patient fell at home after his rotator cuff repair set many months ago and retorn his rotator cuff on the right tried extensive therapy to see if he can get by with what he has unfortunately he is still weak and has a fair bit of pain at night consider repair of the rotator cuff. He has had an MRI scan which demonstrates a new tear of posterior rotator cuff repair per his request. Description of Procedure Patient brought to the operative 7. A general anesthetic was administered placed in the beach chair position the left shoulder exposed.? After sterile prep and drape standard posterior and lateral portals were used for arthroscopy. The joint itself looked reasonably good the biceps tendon was intact.? He had fraying and tearing of the rotator cuff area in the supraspinatus tear region. This was gently debrided.? The subacromial space had an intense bursa, this was debrided with a shaver and acromioplasty performed arthroscopically.? He was quite tight initially. I then proceeded to open the shoulder. A longitudinal incision made from the AC joint distalward over the shoulder.? Dissection carried down to the fascial.? The deltoid was then split from the tip of the acromion. The remainder of the bursa was debrided.? The rotator cuff was torn more in the infraspinatus than the supraspinatus area, retracting back about a centimeter and a half. This was deberided and repaired to bone and tendon, pulling the infraspinatous forward, using #2 Ethibond suture.?A good repair was obtained. The arm was put through full range of motion and weakness of her tears were seen at this time. At this point the deltoid was repaired to itself,the acromion and the trapezius #2 Ethibond. The skin was closed with 2-0 Vicryl and lori.? Sterile dressing applied patient tolerated well left the operating room satisfactory condition. Estimated Blood Loss 50 Drains No Packing No Pathology None sent Complications No immediate complications Condition Stable Disposition PACU
--- NOTE | 2022-08-07 09:57 | PM.OP ---
Procedure Note - Brief Procedure Note - Brief Date of procedure: 08/07/22 Rot Cuff Tear Rt Shoulder postop diagnosis - partial-thickness rotator cuff tendon tear right shoulder, status post previous right rotator cuff repair. Procedure performed: Right shoulder diagnostic arthroscopy followed by open rotator cuff tendon debridement and repair Surgeon: surgeon -Alejandro Mcmanus m.d. pharmaceutical assistant -DEAN Mckeon Description of procedure: patient was taken the operating room on August 07, 2022. I entered the room at 7:35 a.m., at that point I assisted with positioning of the patient in the beach chair positioner after anesthesia was instituted. Once the patient was properly positioned in upright sitting position with an assisted with a sterile prep and drape of the patient's right arm for the surgical procedure. Dr. Mcmanus noted the room and proceeded with right shoulder arthroscopy throughout the procedure and assisted with positioning of the arm. once the arthroscopic procedure was done I then assisted with wound retraction for the open procedure, hemostasis with suction and cautery and positioning of the arm. Once the rotator cuff tendon was debrided and repaired and Dr. Mcmanus closed the deep muscular fascial layers I then irrigated the wound thoroughly obtain further hemostasis with cauterization. I then proceeded with closure of the skin with 2-0 Vicryl subcutaneously, superficially with surgical lori. I then cleaned up the arm placed a sterile dressing with Xeroform gauze 4 x 4 gauze and tape. I placed the patient in a shoulder sling and the patient was placed back in a supine position. Total blood loss was approximately 25 cc. No intraoperative complications were noted the patient was in stable condition and awakened from anesthesia without difficulty. I then assisted with transfer of the patient from the operating table to the stretcher for transport to recovery room. I exited the room at 9:10 a.m.. The patient is expected to be discharged home today and follow up as an outpatient with Dr. Mcmanus.
[2022-08-07] MEDS: oxyCODONE HCL (*CRX) 5 MG TAB IR PO (10:14)
== END 2022-08-07 11:05 | disposition home or self-care (01) ==
PROVIDERS: PCP Family Medicine Adolescent Medicine; Visit Provider Orthopaedic Surgery
PROC: (CPT 29805; principal; 2022-08-07 07:30)
DX: S46.011A Strain of muscle(s) and tendon(s) of the rotator cuff of right shoulder, initial encounter (principal); M19.011 Primary osteoarthritis, right shoulder; W19.XXXA Unspecified fall, initial encounter; G89.18 Other acute postprocedural pain; N18.31 Chronic kidney disease, stage 3a; K21.9 Gastro-esophageal reflux disease without esophagitis; K58.9 Irritable bowel syndrome, unspecified; E78.00 Pure hypercholesterolemia, unspecified; E66.9 Obesity, unspecified; Z68.32 Body mass index [BMI] 32.0-32.9, adult
CPT/HCPCS: 23410; 64415; 36415; 80048; 85610; 85730; A4565; A9270; J0690; J1100; J1885; J2250; J2370; J2405; J2704; J3010; J7120

== ENCOUNTER 2023-08-13 00:30 | Day surgery (SDC) | payer MEDICARE, SELFPAY ==
[2023-07-29 13:50] VITALS: BMI 31.1
[2023-08-13 07:35] VITALS: BP 154/77; PULSE 64; RESP 18; TEMP 36.1; O2SAT 98
[2023-08-13] MEDS: LACTATED RINGERS 1,000 ML 150 ML IV CONT (07:37)
--- NOTE | 2023-08-13 07:51 | WPDANESEPPF ---
Anes - Initial Pre Proc Eval Procedure: Operation Date: 08/13/23 08:30 Proposed Procedures p Colonoscopy - Enrique Moore MD Date/Time: 08/13/23 07:51 Surgeon: Enrique Moore MD Pre Op Diagnosis: screening colon Patient Data Age: 73 Gender: M Height: 1.88 m Weight: 106.5 kg Last Vital Signs Temp 36.1 C L 08/13/23 07:35 Pulse 64 08/13/23 07:35 Resp 18 08/13/23 07:35 BP 154/77 H 08/13/23 07:35 Pulse Ox 98 08/13/23 07:35 O2 Del Method Room Air 08/13/23 07:35 Allergies Allergy/AdvReac Type Severity Reaction Status Date / Time No Known Allergies Allergy Verified 08/13/23 07:17 Home Medications Medication Instructions Recorded Confirmed Type acetaminophen 650 mg 1,300 mg PO Q8H PRN Pain 05/23/21 07/29/23 History tablet,extended release (Tylenol Arthritis Pain) amlodipine 5 mg tablet 5 mg PO QAM #90 tabs 01/06/23 07/29/23 Rx omeprazole 40 mg capsule,delayed 40 mg PO QAM #90 caps 02/28/23 07/29/23 Rx release tadalafil 5 mg tablet 5 mg PO DAILY bph #30 tabs 03/27/23 07/29/23 Rx lisinopril 40 mg tablet See Rx Instructions .Route 05/26/23 07/29/23 Rx .COMPLEX #90 tabs allopurinol 300 mg tablet See Rx Instructions .Route 06/19/23 07/29/23 Rx .COMPLEX #90 tabs fenofibrate 160 mg tablet See Rx Instructions .Route 07/24/23 07/29/23 Rx .COMPLEX #90 tabs Patient hx anesthesia problems: none Family hx anesthesia problems: none Results Review: All pre-operative results and documents have been reviewed as part of the pre-operative evaluation. [facility] Past Medical History Medical History (Updated 08/13/23 @ 08:18 by Enrique Moore MD) Benign hypertension with CKD (chronic kidney disease) stage III Chronic low back pain Colon cancer screening Elevated fasting glucose Erectile dysfunction GERD (gastroesophageal reflux disease) IBS (irritable bowel syndrome) Mild cognitive impairment Osteoarthritis of hands, bilateral Osteoarthritis of right acromioclavicular joint Pure hypercholesterolemia, unspecified Stage 3a chronic kidney disease (CKD) Unspecified rotator cuff tear or rupture of right shoulder, not specified as traumatic Surgical History Surgical History (Updated 08/07/22 @ 09:29 by Chuck Stuart MD) History of appendectomy (~1973) History of arthroscopy of left shoulder (2014) Rotator cuff repair, biceps tenotomy History of carpal tunnel surgery of right wrist (2009) History of cholecystectomy (10/2018) History of repair of right rotator cuff (07/2022) Family History Family History Mother Diabetes mellitus Father Family history of malignant neoplasm Social History Social History (Updated 08/27/22 @ 11:08 by Carmen Robles CMA) Smoking status: Never smoker Second hand tobacco smoke exposure: No Alcohol intake: never Substance use: never Substance use type: does not use Lack of Transportation: No Lack of Food: Never True Current Housing: I Have Housing Concerned About Future Housing: No Difficulty Paying Gas/Electric Bills: No Difficulty Paying for Meds: No Currently Unemployed: No Education: High School Diploma/GED Difficulty w/ Childcare or Family Care: No Living arrangements: with family Additional living arrangements comments: Occupation/Education: retired Gender identity (if verbalized by the patient): Male Sexual Orientation (if Verbalized by the Patient): Straight or Heterosexual Spiritual care concerns: No Agree to blood products: Yes Anes - Eval Final PreProcedure Day of Procedure 08/13/23 07:51 Patient weight: obese Heart: regular rate and rhythm Lungs: clear to auscultation Airway: Mallampati scale class II Neurological: alert and oriented Last oral intake: >/= 8 hours ASA classification: III Emergent: no Anesthetic plan: proceed Anesthesia type and monitoring: general GIVS an
--- NOTE | 2023-08-13 08:18 | PM.HPGS ---
History of Present Illness History of Present Illness Consent: Risks, benefits, and alternatives have been discussed and questions answered. Patient agrees to proceed with procedure. Chief complaint: screening colon Narrative: Te Wright Jr. is a 73 year old male here for screening colonoscopy, last one 10 years ago Review of Systems Review of Systems: All systems reviewed & are unremarkable except as noted in HPI and below PMFSH Past Medical History Medical History (Updated 08/13/23 @ 08:18 by Enrique Moore MD) Benign hypertension with CKD (chronic kidney disease) stage III Chronic low back pain Colon cancer screening Elevated fasting glucose Erectile dysfunction GERD (gastroesophageal reflux disease) IBS (irritable bowel syndrome) Mild cognitive impairment Osteoarthritis of hands, bilateral Osteoarthritis of right acromioclavicular joint Pure hypercholesterolemia, unspecified Stage 3a chronic kidney disease (CKD) Unspecified rotator cuff tear or rupture of right shoulder, not specified as traumatic Surgical History Surgical History (Updated 08/07/22 @ 09:29 by Chuck Stuart MD) History of appendectomy (~1973) History of arthroscopy of left shoulder (2014) Rotator cuff repair, biceps tenotomy History of carpal tunnel surgery of right wrist (2009) History of cholecystectomy (10/2018) History of repair of right rotator cuff (07/2022) Family History Family History Mother Diabetes mellitus Father Family history of malignant neoplasm Social History Social History (Updated 08/27/22 @ 11:08 by Carmen Robles CMA) Smoking status: Never smoker Second hand tobacco smoke exposure: No Alcohol intake: never Substance use: never Substance use type: does not use Lack of Transportation: No Lack of Food: Never True Current Housing: I Have Housing Concerned About Future Housing: No Difficulty Paying Gas/Electric Bills: No Difficulty Paying for Meds: No Currently Unemployed: No Education: High School Diploma/GED Difficulty w/ Childcare or Family Care: No Living arrangements: with family Additional living arrangements comments: Occupation/Education: retired Gender identity (if verbalized by the patient): Male Sexual Orientation (if Verbalized by the Patient): Straight or Heterosexual Spiritual care concerns: No Agree to blood products: Yes Meds Home Medications and Allergies Home Medications Medication Instructions Recorded Confirmed Type acetaminophen 650 mg 1,300 mg PO Q8H PRN Pain 05/23/21 07/29/23 History tablet,extended release (Tylenol Arthritis Pain) amlodipine 5 mg tablet 5 mg PO QAM #90 tabs 01/06/23 07/29/23 Rx omeprazole 40 mg capsule,delayed 40 mg PO QAM #90 caps 02/28/23 07/29/23 Rx release tadalafil 5 mg tablet 5 mg PO DAILY bph #30 tabs 03/27/23 07/29/23 Rx lisinopril 40 mg tablet See Rx Instructions .Route 05/26/23 07/29/23 Rx .COMPLEX #90 tabs allopurinol 300 mg tablet See Rx Instructions .Route 06/19/23 07/29/23 Rx .COMPLEX #90 tabs fenofibrate 160 mg tablet See Rx Instructions .Route 07/24/23 07/29/23 Rx .COMPLEX #90 tabs Allergies Allergy/AdvReac Type Severity Reaction Status Date / Time No Known Allergies Allergy Verified 08/13/23 07:17 Vital Signs Vital Signs - 24 hr 08/13/23 07:35 Temperature 97 F L Pulse Rate 64 Respiratory Rate 18 Blood Pressure 154/77 H Pulse Oximetry 98 Oxygen Delivery Room Air Exam Const: General: comfortable and no acute distress HENMT: Face/Nose/Sinus: Normal nares present Eyes: General: appearance normal, both eyes and all related structures Neck: Neck: no JVD Resp: Auscultation: clear to auscultation bilaterally Cardio: Rate: regular rate Rhythm: regular rhythm GI: Inspection: non-distended GI Palp: Yes Soft to palpation Skin: General skin exam: normal color Neuro: Genera
[2023-08-13 08:31] VITALS: BP 88/55; PULSE 66; RESP 21; O2SAT 94
[2023-08-13 08:41] VITALS: BP 93/58; PULSE 63; RESP 21; O2SAT 95
[2023-08-13 08:51] VITALS: BP 125/69; PULSE 66; RESP 19; O2SAT 96
== END 2023-08-13 09:14 | disposition home or self-care (01) ==
PROVIDERS: PCP Family Medicine Adolescent Medicine; Visit Provider Internal Medicine Gastroenterology
PROC: 0DJD8ZZ Inspection of Lower Intestinal Tract, Via Natural or Artificial Opening Endoscopic (ICD-10-PCS; CPT 45378; principal; 2023-08-13 08:30)
DX: Z12.11 Encounter for screening for malignant neoplasm of colon (principal); D12.2 Benign neoplasm of ascending colon; D12.8 Benign neoplasm of rectum; K64.8 Other hemorrhoids; K57.30 Diverticulosis of large intestine without perforation or abscess without bleeding; I12.9 Hypertensive chronic kidney disease with stage 1 through stage 4 chronic kidney disease, or unspecified chronic kidney disease; N18.31 Chronic kidney disease, stage 3a; G89.29 Other chronic pain; M54.50 Low back pain, unspecified; N52.9 Male erectile dysfunction, unspecified; K21.9 Gastro-esophageal reflux disease without esophagitis; K58.9 Irritable bowel syndrome, unspecified; G31.84 Mild cognitive impairment of uncertain or unknown etiology; M19.042 Primary osteoarthritis, left hand; M19.041 Primary osteoarthritis, right hand; M19.011 Primary osteoarthritis, right shoulder; E78.00 Pure hypercholesterolemia, unspecified; E66.9 Obesity, unspecified; Z68.30 Body mass index [BMI] 30.0-30.9, adult; Z98.890 Other specified postprocedural states; Z90.49 Acquired absence of other specified parts of digestive tract; Z80.9 Family history of malignant neoplasm, unspecified
CPT/HCPCS: 45385; 88305; J2704; J7120

== ENCOUNTER 2023-09-30 10:59 | Outpatient (CLI) | payer MEDICARE, SELFPAY ==
--- NOTE | ~2023-09-30 | XR_ITS ---
Left foot Technique: AP and lateral views were obtained. Clinical History: Heel pain Findings: No acute fracture or dislocation is seen. Osseous alignment is anatomic. Joint spaces are p reserved without erosive or degenerative change. Small plantar calcaneal spur present. There is enthe sopathic change at the Achilles tendon insertion. Impression: No acute abnormality. Chronic changes at the heel, as above. Reviewed, dictated and finalized at location M. Impression: No acute abnormality. Chronic changes at the heel, as above.
== END 2023-09-30 11:00 ==
LOC: MICIMG 11:00
PROVIDERS: PCP Family Medicine Adolescent Medicine; Visit Provider Family Medicine Adolescent Medicine
DX: M79.672 Pain in left foot (principal)
CPT/HCPCS: 73620

== ENCOUNTER 2023-10-16 15:06 | Emergency (ER) | payer MEDICARE, SELFPAY ==
--- NOTE | 2023-10-16 15:12 | ED.GENADULT ---
HPI - General Adult General Chief complaint: Back Pain/Injury Stated complaint: Right Side Body Pain Time Seen by Provider: 10/16/23 15:14 Source: patient, RN notes reviewed and old records reviewed Mode of arrival: ambulatory Limitations: no limitations History of Present Illness HPI narrative: 73-year-old male presents to the [facility] with complaints of right low back pain that has increased over the last couple of days. Denies any injury. No midline tenderness. No loss retention of bowel or bladder. Denies abdominal pain. No bruising or redness noted to the right lower back. No rashes. Pain increases with changing of positions especially from sitting to standing. No sciatic joint tenderness Patient has a history of chronic pain in the same area, states that he used to received back injections Patient recently on a prednisone taper for 16 days. Patient has a history of chronic kidney disease, stage III Related Data Home Medications Medication Instructions Recorded Confirmed acetaminophen 650 mg 1,300 mg PO Q8H PRN Pain 05/23/21 09/22/23 tablet,extended release (Tylenol Arthritis Pain) Allergies Allergy/AdvReac Type Severity Reaction Status Date / Time No Known Allergies Allergy Verified 10/16/23 15:13 Review of Systems Review of Systems: All systems reviewed & are unremarkable except as noted in HPI and below Constitutional: Constitutional: Reports no additional constitutional complaints Eyes: Eyes: Reports no additional eye complaints ENT: Reports system reviewed and no additional complaints, except as documented Cardiovascular: Cardiovascular: Reports no additional cardiovascular complaints, Denies chest pain and Denies dyspnea Respiratory: Respiratory: Reports no additional respiratory complaints, Denies chest congestion, Denies cough and Denies dyspnea Gastrointestinal: Gastrointestinal: Reports no additional gastrointestinal complaints, Denies abdominal pain, Denies nausea and Denies vomiting Musculoskeletal: Musculoskeletal: Reports as per HPI and Reports back pain (Right lower) Integumentary/Breasts: Skin/Breast: Reports system reviewed and no additional complaints, except as docu Neurologic: Reports system reviewed and no additional complaints, except as documented Psychiatric: Psychiatric: Reports no additional psychiatric complaints Allergic/Immunologic: Allergic/Immunologic: Reports no additional allergic/immunologic complaints PMFSH Past Medical History Medical History Benign hypertension with CKD (chronic kidney disease) stage III Chronic low back pain Colon cancer screening Elevated fasting glucose Erectile dysfunction GERD (gastroesophageal reflux disease) IBS (irritable bowel syndrome) Mild cognitive impairment Osteoarthritis of hands, bilateral Osteoarthritis of right acromioclavicular joint Pure hypercholesterolemia, unspecified Stage 3a chronic kidney disease (CKD) Unspecified rotator cuff tear or rupture of right shoulder, not specified as traumatic Surgical History Surgical History History of appendectomy (~1973) History of arthroscopy of left shoulder (2014) Rotator cuff repair, biceps tenotomy History of carpal tunnel surgery of right wrist (2009) History of cholecystectomy (10/2018) History of repair of right rotator cuff (07/2022) Family History Family History Mother Diabetes mellitus Father Family history of malignant neoplasm Social History Social History Smoking status: Never smoker Second hand tobacco smoke exposure: No Alcohol intake: never Substance use: never Substance use type: does not use Lack of Transportation: No Lack of Food: Never True Current Housing: I Have Housing Concerned About Future Housing: No D
[2023-10-16 15:15] VITALS: BP 155/75; PULSE 77; RESP 16; TEMP 37.1; O2SAT 96
== END 2023-10-16 15:40 | disposition home or self-care (01) ==
PROVIDERS: Emergency Provider Nurse Practitioner; PCP Family Medicine Adolescent Medicine
DX: S39.012A Strain of muscle, fascia and tendon of lower back, initial encounter (principal); X58.XXXA Exposure to other specified factors, initial encounter; I12.9 Hypertensive chronic kidney disease with stage 1 through stage 4 chronic kidney disease, or unspecified chronic kidney disease; N18.30 Chronic kidney disease, stage 3 unspecified; K21.9 Gastro-esophageal reflux disease without esophagitis; M19.042 Primary osteoarthritis, left hand; M19.041 Primary osteoarthritis, right hand; M19.011 Primary osteoarthritis, right shoulder; E78.00 Pure hypercholesterolemia, unspecified
CPT/HCPCS: 99213; G0463

== ENCOUNTER 2024-03-02 10:11 | Outpatient (CLI) | payer MEDICARE, SELFPAY ==
--- NOTE | ~2024-03-02 | XR_ITS ---
Right Knee Technique: AP, lateral, and sunrise views were obtained. Clinical History: Pain Findings: No fracture or dislocation is seen. Osseous alignment is anatomic. Minimal degenerative spu rring noted. Soft tissues are unremarkable. No joint effusion is seen. Impression: Minimal degenerative spurring. Reviewed, dictated and finalized at [facility]. ERY INSPECTOR Impression: Minimal degenerative spurring.
== END 2024-03-02 10:12 | disposition home or self-care (01) ==
PROVIDERS: PCP Family Medicine Adolescent Medicine; Visit Provider Family Medicine
DX: M25.561 Pain in right knee (principal)
CPT/HCPCS: 73564

== ENCOUNTER 2024-05-07 14:07 | Outpatient (CLI) | payer MEDICARE, SELFPAY ==
--- NOTE | ~2024-05-07 | MR_ITS ---
EXAMINATION: MR knee RT wo con DATE: 05/07/2024 15:00 INDICATION: Medial right knee pain TECHNIQUE: Magnetic resonance imaging (MRI) of the right knee was performed without intravenous contr ast. Sequences included coronal PD-weighted FSE, coronal PD-weighted FS FSE, sagittal T2-weighted FS E, sagittal PD-weighted FS FSE and axial PD weighted fat saturated FSE. COMPARISON: None. FINDINGS: Medial compartment: Complex tear of the body and posterior horn of the medial meniscus. Partial-thickness cartilage loss with smooth chondral surface along the medial side of the anterior to central weightbearing medial fe moral condyle and medial aspect of the tibial plateau. Lateral compartment: Lateral meniscus is normal. Articular cartilage is normal. Patellofemoral compartment: Deep chondral ulceration with a few foci of minimal subarticular edema-like signal change at the late ral patellar facet. Less severe partial thickness cartilage loss at the patellar apical ridge and med ial facet. Shallow chondral ulceration along the trochlear groove. Ligaments and tendons: Anterior and posterior cruciate ligaments are normal. The fibular collateral ligament complex is norm al. There is edema along the deep and superficial margins of the normal-appearing medial collateral l igament which could be seen with low-grade sprain in setting of recent trauma or more likely reactive edema related to the underlying meniscal tear. Enthesopathy with mild tendinopathy and small entheso phytes at the patellar insertions of the quadriceps and patellar tendons. The visualized medial and l ateral hamstring tendons as well as the iliotibial band are normal. Fluid: Physiologic amount of fluid in the joint space. No intra-articular loose osteochondral bodies identif ied. There is a small loose body within a 5.3 x 3.0 x 1.4 cm Vasquez's cyst. There is additional smalle r ganglion cyst which tracks caudally along the semimembranosus tendon. Osseous/other: There is some red marrow reexpansion the distal femoral metaphyseal region and to lesser degree in th e proximal tibial metaphyseal region. Marrow signal is otherwise normal. No fracture or pathologic ma rrow replacing process. IMPRESSION: 1. Complex medial meniscal tear. 2. Mild osteoarthritis with moderate grade chondral malacia the medial compartment and moderate to hi gh-grade chondromalacia in the lateral compartment. 3. Edema in the soft tissues along the normal-appearing medial collateral ligament which may be react shavonne related to the meniscal tear but which in the setting of acute injury could be seen with low-grad e sprain. 4. Chronic distal quadriceps and proximal patellar enthesopathy. 5. Moderate-sized Vasquez's cyst. Reviewed, dictated and finalized at location A. GE COORDINATOR IMPRESSION: 1. Complex medial meniscal tear. 2. Mild osteoarthritis with moderate grade chondral malacia the medial compartm ent and moderate to high-grade chondromalacia in the lateral compartment. 3. Edema in the soft tissues along the normal-appearing medial collateral ligam ent which may be reactive related to the meniscal tear but which in the setting of acute injury could be seen with low-grade sprain. 4. Chronic distal quadriceps and proximal patellar enthesopathy. 5. Moderate-sized Vasquez's cyst.
== END 2024-05-07 14:08 | disposition home or self-care (01) ==
LOC: GOSHIMG 14:08
PROVIDERS: PCP Family Medicine Adolescent Medicine; Visit Provider Nurse Practitioner Family
DX: S83.249A Other tear of medial meniscus, current injury, unspecified knee, initial encounter (principal); M17.11 Unilateral primary osteoarthritis, right knee; M94.261 Chondromalacia, right knee; R60.9 Edema, unspecified; M71.21 Synovial cyst of popliteal space [Baker], right knee
CPT/HCPCS: 73721

== ENCOUNTER 2024-05-25 08:23 | Outpatient (CLI) | payer MEDICARE, SELFPAY ==
[2024-05-25 09:13] LABS: INR 1.1; Prothrombin Time 14.3 Seconds (11.1-14.7)
[2024-05-25 09:14] LABS: Partial Thromboplastin Time 29.7 Seconds (22.3-36.8)
[2024-05-25 09:22] LABS: Anion Gap 9 mmol/L (4-12); Blood Urea Nitrogen 16 mg/dL (9-20); Calcium 9.1 mg/dL (8.4-10.2); Carbon Dioxide 31 mmol/L (22-30); Chloride 102 mmol/L (98-107); Estimated Glomerular Filt Rate > 60; Glucose 118 mg/dL (65-110); Sodium 142 mmol/L (137-145)
== END 2024-05-25 08:24 | disposition home or self-care (01) ==
LOC: ANHSURGERY 08:28
PROVIDERS: Anesthesiology; PCP Family Medicine Adolescent Medicine; Visit Provider Orthopaedic Surgery
DX: Z01.818 Encounter for other preprocedural examination (principal); N18.31 Chronic kidney disease, stage 3a; I10 Essential (primary) hypertension
CPT/HCPCS: 36415; 80048; 85610; 85730; 93005

== ENCOUNTER 2024-06-04 00:13 | Day surgery (SDC) | payer MEDICARE, SELFPAY ==
--- NOTE | 2024-05-24 14:53 | PC.NURSE ---
Report to the Outpatient Waiting Room, entrance under the green pavilion located off [facility], at time _8:30 AM on date _06/04/24 . Planned Procedure Time: ___10 :30 AM .? Time changes happen often and if your time is changed the preop area will call you the afternoon before. - You and your visitor will be asked to self-screen and do not enter if you have any COVID symptoms. Please call surgeon if you need to reschedule. - A mask is optional within the hospital at this time. Patients may have clear liquids (water, carbonated beverages, clear teas, apple juice) until 3 hours prior to surgery ( 7:30 AM) with a maximum of 20 ounces. - No food from midnight until time of surgery and no smoking, or chewing tobacco (or any form of nicotine). No chewing gum, candy or mints. Take only the following medications with a SIP of water on the morning of surgery: ____AMLODIPINE DO NOT STOP ANY OF YOUR OTHER PRESCRIPTION MEDICATIONS PRIOR TO SURGERY EXCEPT THE FOLLOWING Hold all vitamins and supplements for 3 days per anesthesiologist. Medications to discontinue per physician NONE Please no make-up, nail kazakh, hairspray, perfume, deodorant, or body powder the day of surgery.? No jewelry (including any body piercings) or valuables the day of surgery, leave them at home.? Please take a shower or bath the night before, or the morning of, surgery with an antibacterial soap.? Wear comfortable, loose fitting clothing.? Children are encouraged to wear pajamas. - Jewelry must be removed prior to entering the operating room.? Rings and piercings that are not removed may be cut off. - The hospital will not accept responsibility for valuables.? - Please leave all valuables, including medications, at home the day of surgery. If you are going home after surgery, a licensed garbage collector driver must drive you home.? - NO public transportation without another adult if you receive anesthesia. - We recommend that an adult stay with you for 24 hours following discharge. - We also recommend that you do not drive, make important decision, drink alcoholic beverages, or take any drugs that were not prescribed by your health care provider for at least 24 hours after your discharge time. Follow any additional instructions given to you from your surgeon. Telephone instructions given to __PATIENT and asked if any additional questions and then verbalized understanding. Patient advised to call surgeon office or pre surgery nurse liaison [phone] if any additional questions.
[2024-05-24 15:11] VITALS: BMI 30.8
[2024-06-04] VITALS (8 sets, daily range): BP systolic 128–160; BP diastolic 69–84; PULSE 60–75; RESP 12–17; TEMP 36.3–36.6; O2SAT 96–100; BMI 30.7
--- OUTSIDE RECORDS SUMMARY | 2024-06-04 00:19 | XMS_ITS | Patient Health Summary ---
Author Organization [facility] Address [address] [place] [address] Care Team Providers Care Floor Hand Name Role Phone Chuck Stuart MD Primary Care Provider + Note from [facility],non-owned Affiliates and Associated Physician Practices is amultiple site organization consisting of ambulatory clinics and hospital sitesin [place], [place], [place] and [place]. This disclosure is being madepursuant to the Care Everywhere program and may not contain all information available regarding this patient. Last updated 17.[facility] Allergies No known active allergies Medications * Be aware that medications may not be up to date on this document. Alwaysverify current medications with the patient. * budesonide (ENTOCORT EC) 3 MG capsule(Started 09/07/2018) * cephalexin (KEFLEX) 500 MG capsule(Started 12/09/2018) * chlorthalidone (HYGROTON) 25 MG tablet(Started 10/27/2018) TK 1 T PO QD FOR BLOOD PRESSURE 1 refill left * fenofibrate (LOFIBRA) 160 MG tablet(Started 09/25/2018) TK 1 T PO D * meloxicam (MOBIC) 15 MG tablet(Started 10/19/2018) TK 1 T PO QD 1 refill left * lisinopril (PRINIVIL; ZESTRIL) 40 MG tablet(Started 10/29/2018) TK 1 T PO D FOR BP 1 refill left * omeprazole (PRILOSEC) 40 MG capsule(Started 10/12/2018) TK 1 C PO D FOR ACID 2 refills left * tadalafil (CIALIS) 20 MG tablet(Started 11/24/2018) TK 1 T PO PRN 10 refills left Active Problems No known active problems Social History Tobacco Use Types Packs/Day Years Used Date Smoking Tobacco: Never Smokeless Tobacco: Never Alcohol Use Standard Drinks/Week Comments Not Currently 0 (1 standard drink = 0.6 oz pur e alcohol) AUDIT-C Answer Date Recorded Frequency of Alcohol Consumption Never 12/12/2018 Average Number of Drinks Not on file 019 Frequency of Binge Drinking Not on file 11/23 Sex and Gender Information Value Date Recorded Sex Assigned at Not on file Gender Identity Not on file Sexual Orientation Not on file Last Filed Vital Signs Vital Sign Reading Time Taken Comments Blood Pressure 122/73 12/15/2018 1:46 PM CDT Pulse 67 12/15/2018 1:46 PM CDT Temperature 36.4 C (97.6 F) 12/15/2018 1:16 PM CDT Respiratory Rate 21 12/15/2018 1:46 PM CDT Oxygen Saturation 95% 12/15/2018 1:46 PM CDT Inhaled Oxygen Concentration - - Weight 111.1 kg (245 lb) 12/15/2018 11:32 AM CDT Height 185.4 cm (6' 1 ) 12/15/2018 11:32 AM CDT Body Mass Index 32.32 12/15/2018 11:32 AM CDT Procedures * ESOPHAGOGASTRODUODENOSCOPY (EGD) /ESOPHAGOSCOPY WITH ULTRASOUND (EUS) (Performed 12/15/2018) Performed for Submucosal lesion of stomach * ENDOSCOPIC ULTRASONOGRAPHY, GI(Performed 12/15/2018) Results * ENDOSCOPIC ULTRASONOGRAPHY, GI (12/15/2018 12:09 PM CDT) Report Endoscopy POC Endoscopy Department Report _ Patient Name: Te Wright Procedure Date: 12/15/2018 12:09 PM Date of : 1950 Classification: Outpatient Gender: Male Ethnicity: Not or Race: White _ Providers: Neel Wing MD Referring MD: Bry Feldman DO (Referring MD), Ester Jones (Referring MD) Procedure: Upper EUS and EGD Indications: Gastric deformity on endoscopy/Subepithelia l lesion in gastric antrum Medications: Monitored Anesthesia Care Description of Procedure: After obtaining informed consent, the endoscope was passed under direct vision. Throughout the procedure, the patient's blood pressure, pulse, and oxygen saturations were monitored continuously. The GF-[id number] was introduced through the mouth, and advanced to the second part of duodenum. Findings: Endoscopic Finding : Localized mild mucosal changes characterized by mild fold thickening were found in the gastric antrum. The lesion the patient was referred for appears to be a mildly thickened fold on EUS. This area is ~ 1cm in size in antrum. The examined duodenum was endoscopically normal. The examined esophagus was endoscopically normal. Endosonographic Finding : The esophagus, stomach and duodenum were visualized endosonographically. There was no sign of significant endosonographic abnormality in the main pancreatic duct and entire pancreas. The pancreatic duct measured up to 1 mm in diameter. The pancreas was well visualized, the pancreatic duct was thin in caliber, the pancreatic duct was regular in contour. There was no sign of significant endosonographic abnormality in the entire main bile duct. The maximum diameter of the duct was 4 mm. Patchy wall thickening was visualized endosonographically in the antrum of the stomach. This appeared to primarily be due to thickening within the luminal interface/superficial mucosa (Layer 1). The gastric wall measured up to 2 mm in thickness. No lymph nodes were seen during endosonographic examination in the perigastric region. Estimated Blood Loss: Estimated blood loss: none. Complications: No immediate complications. Estimated blood loss: None. Impression: EGD and EUS: 1) The lesion the patient was referred for appears to be a mildly thickened fold on EUS. The thickening appeared to be primarily within the luminal interface/superficial mucosa (Layer 1). This area is ~ 1cm in size in antrum. 2) Normal examined duodenum. 3) There was no sign of significant pathology in the main pancreatic duct and entire pancreas. 4) There was no sign of significant pathology in the entire main bile duct. 5) No specimens collected. Recommendation: - Discharge patient to home (ambulatory). Procedure Code(s): --- Professional --- 37512, Esophagogastroduodenos copy, flexible, transoral; with endoscopic ultrasound examination, including the esophagus, stomach, and either the duodenum or a surgically altered stomach where the jejunum is examined distal to the anastomosis Diagnosis Code(s): --- Professional --- K31.89, Other diseases of stomach and duodenum CPT copyright 2016 [employer]. All rights reserved. The codes documented in this report are preliminary and upon regional operations manager review may be revised to meet current compliance requirements. Neel Wing MD 12/15/2018 1:16:10 PM This report has been signed electronically. Note Initiated On: 12/15/2018 12:09 PM Number of Addenda: 0 [facility] [address] [place] [address] [facility] 12/15/2018 12:0 9 PM CDT Neel Wing MD GI PROCEDURE ORDERAB LES [facility] Care Teams Floor Hand Relationship Specialty Start Date End Date Chuck Stuart MD [address] [place] [address] [address] [place] [address] PCP - General 07/28/18
--- OUTSIDE RECORDS SUMMARY | 2024-06-04 00:19 | XMS_ITS | Clinical Summary ---
Author Organization [facility] Address [address] [place] [address] Care Team Providers Care Optical Glass Inspector Name Role Phone Chuck Stuart MD Primary Care Provider + Source Comments [facility],non-owned Affiliates and Associated Physician Practices is amultiple site organization consisting of ambulatory clinics and hospital sitesin [place], [place], [place] and [place]. This disclosure is being madepursuant to the Care Everywhere program and may not contain all information available regarding this patient. Last updated 17.[facility] Allergies No known active allergies Medications * Be aware that medications may not be up to date on this document. Alwaysverify current medications with the patient. Medication Sig Dispensed Refills Start Date End Date Status budesonide (ENTOCORT EC) 3 MG capsule 0 09/07/2018 Active cephalexin (KEFLEX) 500 MG capsule 12/09/2018 Active chlorthalidone (HYGROTON) 25 MG tablet TK 1 T PO QD FOR BLOOD PRESSURE 1 10/27/2018 Active fenofibrate (LOFIBRA) 160 MG tablet TK 1 T PO D 0 09/25/2018 Active meloxicam (MOBIC) 15 MG tablet TK 1 T PO QD 1 10/19/2018 Active lisinopril (PRINIVIL; ZESTRIL) 40 MG tablet TK 1 T PO D FOR BP 1 10/29/2018 Active omeprazole (PRILOSEC) 40 MG capsule TK 1 C PO D FOR ACID 2 10/12/2018 Active tadalafil (CIALIS) 20 MG tablet TK 1 T PO PRN 10 11/24/2018 Active Active Problems No known active problems Social [...] Mass Index 32.32 12/15/2018 11:32 AM CDT Plan of Treatment Health Maintenance Due Date Last Done Comments COLOGUARD (AGES 45-75) - COL ON CA SCREENING 1950 COLON MONITORING 1950 COLONOSCOPY - COLON CA SCREENING 1950 CT COLONOGRAPHY - COLON CA SCREENING 1950 Colorectal Cancer Screening 1950 FIT - COLON CA SCREENING 1950 FLEX SIG - COLON CA SCREENING 1950 LIPID TESTING 1950 HEPATITIS C SCREENING 05/31/1970 DTAP/TDAP/TD VACCINES (1 - Tdap) 06/05/1971 PNEUMOCOCCAL VACCINE 50+ (1 of 1 - PCV) 2002 ZOSTER VACCINE (1 of 2) 2002 COVID-19 VACCINE ( - 2023-2 5 season) 2023 INFLUENZA VACCINE (#1) 2023 DEPRESSION SCREENING 03/24/2024 MEDICARE AWV CALENDAR YEAR 2024 Respiratory Syncytial Virus (RSV) Vaccine Pt: or over 60 yrs (1 - 1-dose 75+ series) 06/05/2027 HEPATITIS B VACCINE Aged Out No longe r eligible based on patient's age to complete this topic HIB VACCINE Aged Out No longer eligi ble based on patient's age to complete this topic HPV VACCINE Aged Out No longer eligi ble based on patient's age to complete this topic MENINGOCOCCAL (Group B) VACC INE SHARED DECISION-MAKING Aged Out No longer eligibl e based on patient's age to complete this topic MENINGOCOCCAL GROUPS A/C/Y/W VACCINE Aged Out No longer eligible b ased on patient's age to complete this topic Care Teams Optical Glass Inspector Relationship Specialty Start Date End Date Chuck Stuart MD [address] [address] [place] [address] PCP - General 07/28/18
--- OUTSIDE RECORDS SUMMARY | 2024-06-04 00:19 | XMS_ITS | Referral Summary ---
Author Organization [facility] Address [address] [place] [address] Care Team Providers Care Orthopedic Cast Specialist Name Role Phone Chuck Stuart MD Primary Care Provider + Source Comments [facility],non-owned Affiliates and Associated Physician Practices is amultiple site organization consisting of ambulatory clinics and hospital sitesin [place], [place], [place] and [place]. This disclosure is being madepursuant to the Care Everywhere program and may not contain all information available regarding this patient. Last updated 17.[facility] Allergies No known active allergies Medications * [...] 12/15/2018 11:32 AM CDT Plan of Treatment Not on file Care Teams Orthopedic Cast Specialist Relationship Specialty Start Date End Date Chuck Stuart MD [address] [place] [address] [address] [place] [address] PCP - General 07/28/18
--- OUTSIDE RECORDS SUMMARY | 2024-06-04 00:20 | XMS_ITS | Data Portability ---
Author Organization [place] - [facility] [employer], Main Office Address [address] [place] [address] Care Team Providers Care Property And Supply Officer Name Role Phone NURIS STEPHEN Primary Care Provider NURIS STEPHEN Referring Provider [phone] Assessment Encounter Date Assessment Date Assessment LastModified by Organization Details LastModified Time 06/11/2022 06/11/2022 Patient returns status post retear of the rotator cuff right. He has tried conservative treatment is see if we get him by without an operation for the past 3 or 4 months. It is just not doing the job he would like to consider surgical debridement repair I told there is no guarantee that he get his all the way back we will do the best we can to clean it up and get a better repair at this point. I have discussed this with him risks benefits limitations and alternatives will proceed per his request. [email or web address] Not available 06/11/2022 14:18:16 08/20/2022 08/20/2022 Patient returns status post rotator cuff repair right. His incision is clean overall the pain is tolerable he seems to be doing quite well. I told him that the tendon was not as good obvious is the 1st time as he has torn it again however I was able to repair it with little luck hopefully will work for him. We are going to go very slowly and begin just passive motion for the 1st 6 weeks I will see him back in 4 and begin active and active assisted motion bending and how he feels at that point. [email or web address] Not available 08/20/2022 15:17:19 09/10/2022 09/10/2022 Patient returns status post repair rotator cuff right he has not fallen this time and has not re-injured and progressing nicely pain is resolving and he has quite a bit better than before surgery and progressing well we will begin therapy in a week or 2 and I will see him back in 4-6 weeks for follow-up. He has any changes or problems he will call overall he appears to be following a typical course. [email or web address] Not available 09/10/2022 15:29:23 10/08/2022 10/08/2022 Patient returns status post revision rotator cuff repair. He fell after the 1st 1 and ruptured again psi re repaired told him it is always much more difficult 2nd time but he seems to had a nice result. He has got nearly full motion his strength is returning he is doing fine. I think at this point he can be dismissed if he has any changes or problems he will call us see him back on an as-needed basis. [email or web address] Not available 10/08/2022 16:31:03 Plan of Treatment Reminders Order Date Submit Date Provider Last Modified By Organization Details Last Modified Time Details Appointments None recorded. Lab None recorded. Referral physical therapist referral - patient to schedule in 1-2 weeks 2022 023 [facility], [address], [place], [address], 16:30:32 Procedures None recorded. Surgeries None recorded. Imaging None recorded. Medication Orders None recorded. Patient TargetsNo targets recorded. Patient InstructionsNo instructions recorded. Reason for Referral Physical Therapist Referral for Partial thickness rotator cuff tear patient to schedule in 1-2 weeks Referring Physician: Alejandro Mcmanus, Orthopedic Surgery, Encounter Date: 09/10/2022 Results Created Date Observation Date Name Description Value Unit Range Abnormal Flag Note LastModifiedBy Organization Detail LastModifiedTime Result Notes None recorded. Problems Name Problem SNOMED Code Status Onset Date Resolution Date Notes Provider Name and Address Organization Details Recorded Time Pain of right shoulder joint 8861089365276 9100 Active 2021 Not Available [facility] 13:52:37 Tendinitis of right rotator cuff 4625487859414 9104 Active 2021 Not Available [facility] 3 13:52:37 Partial thickness rotator cuff tear 328655339 Active 2021 Not Available [facility] 3 13:52:37 Full thickness rotator cuff tear 512236443 Active 2021 Not Available [facility] 3 13:52:37 Stitch abscess 713704664 Active 2022 Not Available [facility] 3 13:52:38 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 2860423450748 00 Active 2021 Not Available [facility] 3 13:52:38 Multiple joint pain 65659751 Active 2021 Not Available [facility] 3 13:52:38 Osteoarthr itis 383141927 Active 2021 Not Available [facility] 3 13:52:38 Disorder of rotator cuff 363600538 Active Not Available [facility] 3 13:52:38 Full thickness rotator cuff tear 272541481 Active 2022 Alejandro Mcmauns MD [address] [place] [address], [facility] [address], [place], [address] , [facility] 3 15:29:44 Problem Notes None recorded. Medical Equipment None Reported. Allergies No known drug allergies Medications Name Sig Start Date Stop Date Status Note LastModified by Organization Details LastModified Time celecoxib 200 mg capsule Take 1 capsule every day by oral route. 09/10 completed Not Available Not Available Not Available prednisone 10 mg tablet TAKE 6 TABLETS BY MOUTH ONCE DAILY FOR 3 DAYS, THEN 4 ONCE DAILY FOR 3 DAYS, THEN 2 ONCE DAILY FOR 3 DAYS, THEN 1 ONCE DAILY FOR 4 DAYS 08/22 completed Not Available Not Available Not Available donepezil 5 mg tablet TAKE 1 TABLET BY MOUTH AT BEDTIME 08/22 completed Not Available Not Available Not Available hydrocodone 5 mg-acetamin ophen 325 mg tablet TK 1-2 TS PO Q 6 H PRN 08/22 completed Not Available Not Available Not Available donepezil 10 mg tablet TAKE 1 TABLET BY MOUTH AT BEDTIME 09/10 completed Not Available Not Available Not Available amlodipine 5 mg tablet TAKE 1 TABLET BY MOUTH ONCE DAILY active Not Available Not Available No t Available sulfamethox azole 800 mg-trimetho prim 160 mg tablet Take 1 tablet every 12 hours by oral route for 5 days. 09/10 completed Not Available Not Available Not Available omeprazole 40 mg capsule,del ayed release TAKE 1 CAPSULE BY MOUTH ONCE DAILY active Not Available Not Available No t Available tramadol 50 mg tablet TAKE 1 TABLET BY MOUTH EVERY 4 HOURS NEEDED FOR HEADACHE 08/22 completed Not Available Not Available Not Available prednisone 10 mg tablets in a dose pack Take 1 tab by mouth, 3 times a day for 3 daysTake 1 tab by mouth 2 times a day for 2 daysTake 1 tab by mouth once a day for 1 day 09/10 completed Not Available Not Available Not Available Kenalog 10 mg/mL suspension for injection In office injection administe red by the provider 09/10 completed [facility]: [phone] Not Available Not Available Not Available baclofen 10 mg tablet TAKE 1 TABLET BY MOUTH ONCE DAILY NEEDED FOR HEADACHE 09/10 completed Not Available Not Available Not Available hydrocodone 7.5 mg-acetamin ophen 325 mg tablet TAKE 1 TABLET BY MOUTH EVERY 4 HOURS NEEDED FOR PAIN 09/10 completed Not Available Not Available Not Available gabapentin 300 mg capsule TAKE 1 CAPSULE BY MOUTH TWICE DAILY 08/22 completed Not Available Not Available Not Available allopurinol 300 mg tablet TAKE 1 TABLET BY MOUTH ONCE DAILY active Not Available Not Available No t Available lisinopril 40 mg tablet TAKE 1 TABLET BY MOUTH ONCE DAILY active Not Available Not Available No t Available Vigamox 0.5 % eye drops INSTILL 1 DROP INTO SURGICAL EYE TID STARTING 2 DAYS BEFORE SURGERY 08/14 completed Not Available Not Available Not Available tadalafil 5 mg tablet TAKE 1 TABLET BY MOUTH ONCE DAILY NEEDED FOR BPH active Not Available Not Available No t Available tadalafil 20 mg tablet TAKE 1 TABLET BY MOUTH NEEDED 08/22 completed Not Available Not Available Not Available fenofibrate 160 mg tablet TAKE 1 TABLET BY MOUTH ONCE DAILY active Not Available Not Available No t Available lidocaine (PF) 5 mg/mL (0.5 %) injection solution Take 20 mg by injection route. 09/10 completed Not Available Not Available Not Available Durezol 0.05 % eye drops INSTILL 1 DROP QD INTO SURGICAL EYE STARTING AFTER SURGERY 08/14 completed Not Available Not Available Not Available ropivacaine (PF) 5 mg/mL (0.5 %) injection solution In office injection administe red by the provider 09/10 completed Not Available Not Available Not Available Ilevro 0.3 % eye drops,suspe nsion INT 1 GTT IN THE SURGICAL EYE QD STARTING 2 DAYS BEFORE SURGERY 08/14 completed Not Available Not Available Not Available Vitals Date Recorded Body mass index (BMI) Body height Body weight Provider Name and Address Organization Details Last Updated DateTime 05/14/2022 31.7 kg/m2 187.96 cm 845961.32 g Not Available [facility] 05/22/2022 13:52:25 Date Recorded Body height Body mass index (BMI) Body weight Provider Name and Address Organization Details Last Updated DateTime 06/11/2022 187.96 cm 32.1 kg/m2 609223.09 g [employer] 06/11/2022 13:56:11 Date Recorded Body height Body mass index (BMI) Body weight Provider Name and Address Organization Details Last Updated DateTime 08/20/2022 187.96 cm 32.1 kg/m2 566018.09 g Florinda Duarte, [employer] 08/20/2022 15:00:14 Date Recorded Body height Provider Name an d Address Organization Details Last Updated DateTime 09/10/2022 187.96 cm Florinda Lewismeagan [employer] 09/10/2022 15:15:46 Date Recorded Body height Body mass index (BMI) Body weight Provider Name and Address Organization Details Last Updated DateTime 10/08/2022 187.96 cm 31.8 kg/m2 965051.91 g Meka [employer] 10/08/2022 16:11:13 Social History Question Answer Notes LastModified by Organizat ion Details LastModified Time Tobacco Smoking Status Never Smoker Not Available [facility] 05/22/2022 13:52:13 What Is Your Level Of Alcohol Consumption? None [id number] Information not available 05/22/2022 Sex: Unknown Functional Status None recorded. Mental Status None recorded. Family History Relationship Description Onset Age of this Age Resolved Age Notes LastModified by Organization Details LastModified Time Paternal Grandfather Family history of malignant neoplasm [id number] Not available 05/22/2022 13:52:20 Father Hypertensive disorder [id number] Not available 05/22/2022 13:52:21 Father Diabetes mellitus [id number] Not available 05/22/2022 13:52:21 Mother Hypertensive disorder [id number] Not available 05/22/2022 13:52:21 Mother Diabetes mellitus [id number] Not available 05/22/2022 13:52:21 Paternal Uncle Heart disease [email or web address] Not available 2022 15:18:11 Father Family history of malignant neoplasm [email or web address] Not available 2022 15:18:44 Medical History Condition Response ARTHRITIS Y URINARY/BLADDER/KIDNEY PROBLEMS Y HYPERTENSION Y Past Encounters Encounter ID Performer Location Encounter Start Date Encounter Closed Date Diagnosis/Indication Diagnosis SNOMED-CT Code Diagnosis ICD10 Code Diagnosis Note [id number] [facility] [place] [address] [place] [address] 08/22/2021 00:00:00 08/22/2021 09:33:14 [id number] [facility] [place] [address] [place] [address] 10/02/2021 00:00:00 10/02/2021 16:23:18 [id number] [facility] [place] [address] [place] [address] 10/11/2021 00:00:00 10/11/2021 10:38:22 [id number] [facility] [place] [address] [place] [address] 12/31/2021 00:00:00 12/31/2021 11:24:56 [id number] [facility] [place] [address] [place] [address] 01/14/2022 00:00:00 01/14/2022 10:45:07 [id number] [facility] [place] [address] [place] [address] 02/11/2022 00:00:00 02/11/2022 11:28:51 [id number] [facility] [place] [address] [place] [address] 03/11/2022 00:00:00 03/11/2022 10:39:41 [id number] [facility] [place] [address] [place] [address] 03/19/2022 00:00:00 03/19/2022 15:45:31 [id number] [facility] [place] [address] [place] [address] 04/12/2022 00:00:00 04/12/2022 14:49:42 [id number] [facility] [place] [address] [place] [address] 04/16/2022 00:00:00 04/16/2022 14:22:30 [id number] [facility] [place] [address] [place] [address] 05/14/2022 00:00:00 05/14/2022 14:32:52 [id number] Alejandro Mcmanus MD [facility] [place] [address] [place] [address] 06/11/2022 13:53:30 06/11/2022 15:16:55 Tendinitis of right rotator cuff 1183599959 1980066 M67.813 Partial th ickness rotator cuff tear 770782724 M75.121 [id number] Alejandro Mcmanus MD [facility] [place] [address] [place] [address] 08/20/2022 14:58:24 08/20/2022 16:25:59 Postoperative visit 640238844 Z09 Full thick ness rotator cuff tear 773263680 M75.121 [id number] Alejandro Mcmanus MD [facility] [place] [address] [place] [address] 09/10/2022 14:50:25 09/10/2022 15:54:42 Pain of right shoulder joint 3650399772 9190465 M25.511 Partial th ickness rotator cuff tear 262215353 M75.121 Full thick ness rotator cuff tear 619441284 M75.121 [id number] Alejandro Mcmanus MD [facility] [place] [address] [place] [address] 10/08/2022 15:58:49 10/08/2022 16:31:25 Pain of right shoulder joint 1408429991 5201180 M25.511 Partial th ickness rotator cuff tear 179016737 M75.121 Health Concerns Section Related Observation LastModified by Organization Detai ls LastModified Time None Recorded Concern Status LastModified by Organization Details LastModified Time None Recorded Advance Directives Directive None Recorded Payers Encounter Date Sequence Insurance Name Policy Number Policy Jaramillo Covered Member ID Jaramillo Member ID Guarantor Name 06/11/2022 1 [facility] (MEDICARE REPLACEMENT/A DVANTAGE - PPO) [id number] Te M Wilson [id number] [place] M Wilson 08/20/2022 1 [facility] (MEDICARE REPLACEMENT/A DVANTAGE - PPO) [id number] Te M Wilson [id number] Te M Wilson 09/10/2022 1 [facility] (MEDICARE REPLACEMENT/A DVANTAGE - PPO) [id number] Te M Wilson [id number] [place] M Wilson 10/08/2022 1 [facility] (MEDICARE REPLACEMENT/A DVANTAGE - PPO) [id number] Te M Wilson [id number] Te M Wilson Notes Date Note Type Note Provider Name and Address Organization Details Recorded Time 06/11/2022 text/html Patient returns shoulder pain right. He remains symptomatic despite adequate conservative treatment. He had a fall he ruptured his repair. He get his arm above his head but he does not have a lot of strength this time. He would like to consider surgical repair or in his case re-repair. Alejandro Mcmanus MD [address], [place], [address], [employer] 06/11/2022 14:18:37 08/20/2022 text/html Patient returns status post rotator cuff repair RIGHT. He had slipped and fallen and torn his repair the 1st time around. Alejandro Mcmanus MD [address], [place], [address], [employer] 08/20/2022 15:18:22 09/10/2022 text/html patient returns status post rotator cuff repair right pain is resolving he is doing well he feels quite good. Alejandro Mcmanus MD [address], [place], [address], [facility] 09/10/2022 15:30:05 10/08/2022 text/html Patient returns status post rotator cuff repair right pain is resolving he is doing well he feels quite good. His motion is excellent strength is returning overall he thinks he is progressing nicely. Alejandro Mcmanus MD [address], [place], [address], [employer] 10/08/2022 16:31:19
--- OUTSIDE RECORDS SUMMARY | 2024-06-04 00:20 | XMS_ITS | Clinical Summary ---
Author Organization [facility] Address [address] [place] [address] Care Team Providers Care Labor Relations Representative Name Role Phone Chuck Stuart MD Primary Care Provider [phone] Social History Tobacco Use Types Packs/Day Years Used Date Smoking Tobacco: Never Assessed Sex and Gender Information Value Date Recorded Sex Assigned at Not on file Legal Sex Male 4:55 PM CDT Gender Identity Not on file Sexual Orientation Not on file Last Filed Vital Signs Vital Sign Reading Time Taken Comments Blood Pressure 140/74 10/29/2012 9:11 AM CDT Pulse 76 10/29/2012 9:11 AM CDT Temperature - - Respiratory Rate - - Oxygen Saturation - - Inhaled Oxygen Concentration - - Weight 122.5 kg (270 lb) 10/29/2012 9:11 AM CDT Height 188 cm (6' 2 ) 10/29/2012 9:11 AM CDT Body Mass Index 34.67 10/29/2012 9:11 AM CDT Plan of Treatment Health Maintenance Due Date Last Done Comments Colorectal Cancer Screening Colonoscopy (10 Years) 1950 Hepatitis C 1970 DTaP, Tdap and Td Vaccines ( 1 - Tdap) 06/05/1971 Zoster Vaccines (1 of 2) 2002 Pneumococcal Vaccine: 65+ Ye ars (1 of 1 - PCV) 2017 COVID-19 Vaccine ( - 2023-2 5 season) 2023 Influenza Adult (#1) 2023 RSV Immunization or 60+ Years (1 - 1-dose 75+ series) 06/05/2027 Meningococcal B Vaccine Aged Out No l onger eligible based on patient's age to complete this topic Meningococcal Vaccine Aged Out No patrick pauline eligible based on patient's age to complete this topic RSV Immunizations Under 20 Months Aged Out No longer eligible based on patient's age to complete this topic Care Teams Labor Relations Representative Relationship Specialty Start Date End Date Chuck Stuart MD [address] [place] [address] PCP - General 09/14/12
--- OUTSIDE RECORDS SUMMARY | 2024-06-04 00:20 | XMS_ITS | Clinical Summary ---
Author Organization [facility] Address [address] [address] Phone Care Team Providers Care Lap Machine Operator Name Role Phone Chuck Stuart MD Primary Care Provider + Allergies No known active allergies Medications lisinopril (PRINIVIL, ZESTRIL) 40 MG Tablet TK 1 T PO D FOR BP 0 07/20/2018 Active chlorthalidone (HYGROTON) 25 MG Tablet TK 1 T PO QD FOR BLOOD PRESSURE 1 07/13/2018 Active Meloxicam 15 MG Tablet TK 1 T PO QD 1 07/18/2018 Active omeprazole (PRILOSEC) 40 MG CAPSULE DELAYED RELEASE TK 1 C PO D FOR ACID 2 07/16/2018 Active fenofibrate 160 MG Tablet TK 1 T PO D 1 06/07/2018 Active tadalafil (CIALIS) 20 MG Tablet TK 1 T PO PRN 8 07/21/2018 Activ e raNITIdine (ZANTAC) 150 MG Tablet Take 1 Tab by mouth 2 times daily. 180 Tab 3 09/07/2018 Active Family History Medical History Relation Name Comments Cancer Father Diabetes Mother Relation Name Status Comments Father Mother Social History Tobacco Use Types Packs/Day Years Used Date Smoking Tobacco: Never Smokeless Tobacco: Never Alcohol Use Standard Drinks/Week Comments Yes 1 (1 standard drink = 0.6 oz pur e alcohol) occassional Sex and Gender Information Value Date Recorded Sex Assigned at Not on file Legal Sex Male 3:10 PM CDT Gender Identity Not on file Sexual Orientation Not on file Last Filed Vital Signs Vital Sign Reading Time Taken Comments Blood Pressure 158/82 09/07/2018 1:25 PM CDT Pulse 88 09/07/2018 1:25 PM CDT Temperature 36.3 C (97.4 F) 09/07/2018 1:25 PM CDT Respiratory Rate 18 09/07/2018 1:25 PM CDT Oxygen Saturation 96% 09/07/2018 1:25 PM CDT Inhaled Oxygen Concentration - - Weight 116.1 kg (256 lb) 09/07/2018 1:25 PM CDT Height 185.4 cm (6' 1 ) 09/07/2018 1:25 PM CDT Body Mass Index 33.78 09/07/2018 1:25 PM CDT Plan of Treatment Health Maintenance Due Date Last Done Comments Hepatitis C Virus (HCV) Screening 1950 TdaP Immunization 1950 Cologuard 2002 Immunochemical Fecal Occult Blood 2002 Pneumococcal Immunization (5 0+ years) (1 of 1 - PCV) 2002 Zoster Immunization (1 of 2) 2002 Influenza Immunization (#1) 2023 SARS-COV-2 Immunization ( season) 2023 02/27/2021, 06/22/2020, 05/25/2020 Respiratory Syncytial Virus (RSV) Immunization (Adult) (1 - 1-dose 75+ series) 06/05/2027 Colonoscopy 07/23/2028 07/23/2018 Colorectal Cancer Screening 07/23/2028 07/23/2018 Hepatitis B Immunization Aged Out No longer eligible based on patient's age to complete this topic Meningococcal Immunization (ACWY) Aged Out No longer eligible b ased on patient's age to complete this topic Rotavirus Immunization Aged Out No lo nger eligible based on patient's age to complete this topic Procedures Procedure Name Priority Date/Time Associated Diagnosis Comments COLONOSCOPY Routine 07/23/2018 from Last 3 Months or Most Recently Relevant to Health Maintenance Results * COLONOSCOPY (07/23/2018) us Bry T Klucka DO PROCEDURE/MINOR SURGICAL ORDERA BLES Final Result from Last 3 Months or Most Recently Relevant to Health Maintenance Care Teams Lap Machine Operator Relationship Specialty Start Date End Date Chuck Stuart MD [address] [place] [address] PCP - General Family Medicine 06/18/18
[2024-06-04] MEDS: ACETAMINOPHEN 500 MG TABLET 1000 MG PO (09:14)
[2024-06-04] MEDS: CELECOXIB 200 MG CAPSULE PO (09:15)
--- NOTE | 2024-06-04 11:02 | WPDHPUPDATE1 ---
History and Physical Update Update Date/Time: 06/04/24 11:02 History and Physical has been reviewed, including an updated exam of the patient. There are NO changes in the patient's condition. Risks, benefits, and alternatives have been discussed and questions answered. Patient agrees to proceed with procedure.
--- NOTE | 2024-06-04 11:04 | WPDANESEPPF ---
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, chondromylasia Patient Data Age: 74 Gender: M Height: 1.88 m Weight: 108.5 kg Last Vital Signs Temp 36.6 C 06/04/24 08:00 Pulse 60 06/04/24 08:00 Resp 14 06/04/24 08:00 BP 160/77 H 06/04/24 08:00 Pulse Ox 99 06/04/24 08:00 O2 Del Method Room Air 06/04/24 08:00 Allergies Allergy/AdvReac Type Severity Reaction Status Date / Time No Known Allergies Allergy Verified 06/04/24 09:32 Home Medications ?Medication ?Instructions ?Recorded ?Confirmed ?Type acetaminophen 650 mg 1,300 mg PO Q8H PRN Pain 05/23/21 06/04/24 History tablet,extended release (Tylenol Arthritis Pain) fenofibrate 160 mg tablet See Rx Instructions .Route 07/24/23 06/04/24 Rx .COMPLEX #90 tabs allopurinol 300 mg tablet See Rx Instructions .Route 09/16/23 06/04/24 Rx .COMPLEX #90 tabs amlodipine 5 mg tablet 5 mg PO QAM #90 tabs 10/11/23 06/04/24 Rx omeprazole 40 mg capsule,delayed See Rx Instructions .Route 11/19/23 06/04/24 Rx release .COMPLEX #90 caps sildenafil 100 mg tablet 50 mg (1/2 x 100 mg) PO DAILY PRN 03/31/24 06/04/24 Rx sexual activity #10 tabs tadalafil 5 mg tablet See Rx Instructions .Route 04/22/24 06/04/24 Rx .COMPLEX #30 tabs lisinopril 40 mg tablet See Rx Instructions .Route 05/21/24 06/04/24 Rx .COMPLEX #90 tabs chlorhexidine gluconate 4 % 1 applic topical ONCE #237 mL 05/28/24 06/04/24 Rx topical liquid (Hibiclens) hydrocodone 5 mg-acetaminophen 325 1 tablet PO Q12H PRN pain #20 tabs 06/04/24 Rx mg tablet Patient hx anesthesia problems: none Family hx anesthesia problems: none Results Review: All pre-operative results and documents have been reviewed as part of the pre-operative evaluation. [facility] Past Medical History Medical History Colon cancer screening Osteoarthritis of right acromioclavicular joint Unspecified rotator cuff tear or rupture of right shoulder, not specified as traumatic Mild cognitive impairment Osteoarthritis of hands, bilateral IBS (irritable bowel syndrome) Stage 3a chronic kidney disease (CKD) GERD (gastroesophageal reflux disease) Erectile dysfunction Elevated fasting glucose Benign hypertension with CKD (chronic kidney disease) stage III Pure hypercholesterolemia, unspecified Chronic low back pain Surgical History Surgical History History of repair of right rotator cuff (07/2022) History of carpal tunnel surgery of right wrist (2009) History of arthroscopy of left shoulder (2014) Rotator cuff repair, biceps tenotomy History of appendectomy (~1973) History of cholecystectomy (10/2018) Family History Family History Mother Diabetes mellitus Father Family history of malignant neoplasm Unknown Lung disease Pancreas cancer Social History Social History Smoking status: Never smoker Second hand tobacco smoke exposure: No Alcohol intake: never Substance use: never Substance use type: does not use Lack of Transportation: No Lack of Food: Never True Current Housing: I Have Housing Concerned About Future Housing: No Difficulty Paying Gas/Electric Bills: No Difficulty Paying for Meds: No Currently Unemployed: No Education: High School Diploma/GED Difficulty w/ Childcare or Family Care: No Living arrangements: with family Additional living arrangements comments: Occupation/Education: retired Gender identity (if verbalized by the patient): Male Sexual Orientation (if Verbalized by the Patient): Straight or Heterosexual Spiritual care concerns: No Agree to blood products: Yes Anes - Eval Final PreProcedure Day of Procedure 06/04/24 11:04 Patient weight: obese Heart: regular rate and rhythm Lungs: decreased breath sounds Airway: Mallampati scale class II Neurological: alert and oriented Last oral intake: >/= 8 hours ASA classification: III Emergent: no Anesthetic plan: proceed Anesthesia type and monitoring: general LMA and standard monitoring Results Review: All pre-operative results and documents have been reviewed as part of the pre-operative evaluation. Informed Consent: The patient's anesthetic plan and its attendant risks and benefits were discussed with the patient/family/POA. Questions were solicited and answers provided to the satisfaction of the patient/family/POA.
[2024-06-04] MEDS: LACTATED RINGERS 1,000 ML 30 ML IV CONT (11:08)
[2024-06-04] MEDS: BUPivacaine HCL 0.5% 10 ML AMP 30 ML INFILTRATE (11:09)
[2024-06-04] MEDS: ceFAZolin 2 GM/D5W 50 ML 2 GM/50 ML BAG IVPB (11:09)
--- NOTE | 2024-06-04 12:28 | W.PM.PROC2 ---
Procedure Note - Detailed Date of Procedure 06/04/24 Pre-op Diagnosis right knee medial meniscus tear, chondromylasia Post-op Diagnosis Same Procedure Performed RIGHT KNEE SCOPE Surgeon Freedom Nolasco MD Anesthesia General Description of Procedure PATIENT WAS TAKEN TO THE OR. RIGHT LEG WAS PREPPED AND DRAPED STERILE. TROCARS WERE PLACED IN THE USUAL FASHION. CAMERA WAS INTRODUCED. THERE WAS CHONDROMALACIA TO THE PATELLA FEMORAL JOINT. THERE WAS A LOT OF SYNOVITIS IN ALL COMPARTMENTS. THE MEDIAL COMPARTMENT SHOWED CHONDROMALACIA TO THE MEDIAL FEMORAL CONDYLE. A SHAVER WAS USED TO PREFORM A CHONDROPLASTY. THERE WAS A COMPLEX MEDIAL MENISCUS TEAR. THE TEAR WAS RESECTED WITH A BITER AND A SHAVER DOWN TO A SMOOTH BASE. ABOUT 30% OF THE MENISCUS WAS REMOVED. THE ACL WAS INTACT. THE LATERAL MENISCUS WAS NOT TORN. THE LATERAL COMPARTMENT HAD MINIMAL CHONDROMALACIA AT THE LATERAL PLATEAU. CHONDROPLASTY WAS PREFORMED. A SYNOVECTOMY WAS PREFORMED WELL. THE PATELLO FEMORAL JOINT UNDERWENT CHONDROPLASTY. THERE WAS GRADE 3 CHONDROMALACIA IN MOST OF THE TROCHLEA AND PART OF THE PATELLA. SYNOVECTOMY WAS PREFORMED IN THE SUPERIOR MEDIAL COMPARTMENT. THE WOUNDS WERE APPROXIMATED WITH 4.0 NYLON. STERILE DRESSING WAS APPLIED. PATIENT WAS EXTUBATED. Estimated Blood Loss 5 Complications No immediate complications Condition Stable Disposition PACU
[2024-06-04] MEDS: fentaNYL CITRATE INJ (*CRX) 100 MCG/2 ML VIAL 25 MCG IV PUSH ×2 (12:45→12:57)
[2024-06-04] MEDS: oxyCODONE HCL (*CRX) 2.5 MG TAB IR PO (13:30)
== END 2024-06-04 14:21 | disposition home or self-care (01) ==
PROVIDERS: PCP Family Medicine Adolescent Medicine; Visit Provider Orthopaedic Surgery
PROC: (CPT 29870; principal; 2024-06-04 10:30)
DX: S83.231A Complex tear of medial meniscus, current injury, right knee, initial encounter (principal); M65.861 Other synovitis and tenosynovitis, right lower leg; M94.261 Chondromalacia, right knee; W18.40XA Slipping, tripping and stumbling without falling, unspecified, initial encounter
CPT/HCPCS: 29881; 29876; A9270; J0690; J2704; J3010; J7120

== ENCOUNTER 2025-01-05 09:49 | Emergency (ER) | payer MEDICARE, SELFPAY ==
[2025-01-05 09:55] VITALS: BP 150/75; PULSE 90; RESP 16; TEMP 36.7; O2SAT 97
--- NOTE | 2025-01-05 09:55 | ED.GENADULT ---
HPI - General Adult General Chief complaint: Eye Problems Stated complaint: something in left eye Source: patient Mode of arrival: ambulatory Limitations: no limitations History of Present Illness HPI narrative: Pt is a 74 y/o male presenting with c/o suspected FB to the L. eye. Reports FB sensation beginning 1 week ago. Denies any known trauma. Does not wear contact lenses. No tx initiated [employer]. No additional complaints. Related Data Home Medications ?Medication ?Instructions ?Recorded ?Confirmed ?Last Taken ?Type acetaminophen 650 mg 1,300 mg PO Q8H PRN Pain 05/23/21 08/17/24 06/03/24 History tablet,extended release (Tylenol Arthritis Pain) Allergies Allergy/AdvReac Type Severity Reaction Status Date / Time No Known Allergies Allergy Verified 01/05/25 09:57 Review of Systems Review of Systems: CONSTITUTIONAL: Denies body aches, fever, chills, or sweats. EYES: Reports FB sensation to the L. eye, redness, denies visual changes or discharge. ENT: Denies rhinorrhea, congestion, sore throat, or otalgia. CARDIOVASCULAR: Denies chest pain, palpitations, or edema. RESPIRATORY: Denies cough or dyspnea. GASTROINTESTINAL: Denies abdominal pain, nausea, vomiting, or diarrhea. GENITOURINARY: Denies dysuria or hematuria. SKIN: Denies rash, itching, or wounds. MUSCULOSKELETAL: Denies back pain, joint pain, or myalgia. NEUROLOGIC: Denies headache, numbness, tingling, or weakness. PSYCH: Denies depression or anxiety. All systems reviewed & are unremarkable except as noted in HPI and below PMFSH Past Medical History Medical History Colon cancer screening Osteoarthritis of right acromioclavicular joint Unspecified rotator cuff tear or rupture of right shoulder, not specified as traumatic Mild cognitive impairment Osteoarthritis of hands, bilateral IBS (irritable bowel syndrome) Stage 3a chronic kidney disease (CKD) GERD (gastroesophageal reflux disease) Erectile dysfunction Elevated fasting glucose Benign hypertension with CKD (chronic kidney disease) stage III Pure hypercholesterolemia, unspecified Chronic low back pain Surgical History Surgical History History of arthroscopy of right knee (05/2024) Chondroplasty, meniscal tear History of repair of right rotator cuff (07/2022) History of carpal tunnel surgery of right wrist (2009) History of arthroscopy of left shoulder (2014) Rotator cuff repair, biceps tenotomy History of appendectomy (~1973) History of cholecystectomy (10/2018) Family History Family History Mother Diabetes mellitus Father Family history of malignant neoplasm Unknown Lung disease Pancreas cancer Social History Social History Smoking status: Never smoker Second hand tobacco smoke exposure: No Alcohol intake: never Substance use: never Substance use type: does not use Lack of Transportation: No Lack of Food: Never True Current Housing: I Have Housing Concerned About Future Housing: No Difficulty Paying Gas/Electric Bills: No Difficulty Paying for Meds: No Currently Unemployed: No Education: High School Diploma/GED Difficulty w/ Childcare or Family Care: No Living arrangements: with family Additional living arrangements comments: Occupation/Education: retired Gender identity (if verbalized by the patient): Male Sexual Orientation (if Verbalized by the Patient): Straight or Heterosexual Spiritual care concerns: No Agree to blood products: Yes Exam Narrative: GENERAL: Well-appearing, well-nourished, and in no acute distress. HEAD: Normocephalic, atraumatic. EYES: EOMI. mild injection noted to lateral conjunctiva of left eye, no drainage. R Conjunctivae normal. ENT: Mucous membranes pink and moist. . NECK: Normal AROM. Supple. CHEST: No respiratory distress. HEART: Regular rate EXTREMITIES: Normal range of motion. SKIN: Warm, dry, no rash. Capillary refill normal. Normal skin turgor. NEURO: No focal deficits. Alert and oriented x3. Gait steady. PSYCH: Normal affect. No signs of depression or anxiety. Eyes: Periorbital: periorbital findings normal Eyelids: eyelids normal Conjunctivae: conjunctival abnormality left conjunctival injection localized Cornea: fluorescein used (No obvious corneal abnormality noted. No FB appreciated ) Course Course Level of Care: Express Care Visit Vital Signs Vital signs: Vital Signs Temperature 98.0 F 01/05/25 09:55 Pulse Rate 90 01/05/25 09:55 Respiratory Rate 16 01/05/25 09:55 Blood Pressure 150/75 H 01/05/25 09:55 Pulse Oximetry 97 01/05/25 09:55 Oxygen Delivery Room Air 01/05/25 09:55 Temperature 98.0 F 01/05/25 09:55 Pulse Rate 90 01/05/25 09:55 Respiratory Rate 16 01/05/25 09:55 Blood Pressure 150/75 H 01/05/25 09:55 Pulse Oximetry 97 01/05/25 09:55 Oxygen Delivery Room Air 01/05/25 09:55 Procedures Other Procedure Procedure 1: Other Procedure: Fluorescein stain Fluorescein staining of the cornea was performed by first placing a drop of tetracaine on a sterile fluorescein strip.? I then gently pulled down on the left lower lid and gently touching the bulbar conjunctiva with the fluorescein strip. I asked the patient to blink in order to distribute the dye over the ocular surface.? No stained corneal epithelial defect noted with the naked eye.? I then used a cobalt blue light to enhance visualization.? I did not appreciate a staining defect on fluorescein examination.? I then irrigated the left eye with 118mL NS via eye wash bottle to remove any remaining fluorescein.? Pt tolerated procedure well without immediate complication.? Medical Decision Making MDM Narrative Medical decision making narrative: Discussed elevated blood pressure readings with patient and advised daily BP monitoring and f/u with PCP if persisting. Vital Signs Vital Signs: Vital Signs Temperature 98.0 F 01/05/25 09:55 Pulse Rate 90 01/05/25 09:55 Respiratory Rate 16 01/05/25 09:55 Blood Pressure 150/75 H 01/05/25 09:55 Pulse Oximetry 97 01/05/25 09:55 Oxygen Delivery Room Air 01/05/25 09:55 Temperature 98.0 F 01/05/25 09:55 Pulse Rate 90 01/05/25 09:55 Respiratory Rate 16 01/05/25 09:55 Blood Pressure 150/75 H 01/05/25 09:55 Pulse Oximetry 97 01/05/25 09:55 Oxygen Delivery Room Air 01/05/25 09:55 Discharge Plan Discharge Clinical Impression: Acute conjunctivitis of left eye Qualifiers: Acute conjunctivitis type: unspecified Qualified Code(s): H10.32 - Unspecified acute conjunctivitis, left eye HTN (hypertension) Qualifiers: Hypertension type: unspecified Qualified Code(s): I10 - Essential (primary) hypertension Patient Disposition: Home Condition: Stable Instructions: Antibiotic Form Additional Instructions: Follow-up with your eye doctor As soon as you leave here today. Go straight to ER should your symptoms become worse or should any new symptoms develop Patient Language: Citizen Of [place] Prescriptions: New erythromycin 5 mg/gram (0.5 %) ointment 0.5 inch LEFT EYE TID Qty: 3.5 0RF No Action sildenafil 100 mg tablet 50 mg PO DAILY PRN (Reason: sexual activity) Qty: 10 5RF acetaminophen [Tylenol Arthritis Pain] 650 mg tablet extended release 1,300 mg PO Q8H PRN (Reason: Pain) allopurinol 300 mg tablet See Rx Instructions .ROUTE .COMPLEX Qty: 90 2RF Dose Instruction: Take 1 tablet by mouth once daily Rx Instructions: Take 1 tablet by mouth once daily tadalafil 5 mg tablet See Rx Instructions .ROUTE .COMPLEX Qty: 30 6RF Dose Instruction: TAKE 1 TABLET BY MOUTH ONCE DAILY FOR BPH Rx Instructions: TAKE 1 TABLET BY MOUTH ONCE DAILY FOR BPH amlodipine 5 mg tablet See Rx Instructions .ROUTE .COMPLEX Qty: 90 0RF Dose Instruction: TAKE 1 TABLET BY MOUTH ONCE DAILY IN THE MORNING Rx Instructions: TAKE 1 TABLET BY MOUTH ONCE DAILY IN THE MORNING fenofibrate 160 mg tablet See Rx Instructions .ROUTE .COMPLEX Qty: 90 0RF Dose Instruction: Take 1 tablet by mouth once daily Rx Instructions: Take 1 tablet by mouth once daily lisinopril 40 mg tablet See Rx Instructions .ROUTE .COMPLEX Qty: 90 2RF Dose Instruction: TAKE 1 TABLET BY MOUTH IN THE MORNING Rx Instructions: TAKE 1 TABLET BY MOUTH IN THE MORNING omeprazole 40 mg capsule,delayed release(DR/EC) See Rx Instructions .ROUTE .COMPLEX Qty: 90 2RF Dose Instruction: Take 1 capsule by mouth in the morning Rx Instructions: Take 1 capsule by mouth in the morning Follow-up/Referrals: Chuck Stuart MD [Primary Care Provider, Family Practice] - 01/06/25
[2025-01-05] MEDS: FLUORESCEIN SOD 1 MG/STRIP LEFT EYE (10:08)
[2025-01-05] MEDS: TETRACAINE HCL 0.5% OPHTH SOLN 4 ML BTL LEFT EYE (10:08)
[2025-01-05] MEDS: DACRIOSE EYE IRRIGATION 118 ML BOTTLE LEFT EYE (10:09)
== END 2025-01-05 10:20 | disposition home or self-care (01) ==
PROVIDERS: Emergency Provider Registered Nurse; PCP Family Medicine Adolescent Medicine
DX: H10.32 Unspecified acute conjunctivitis, left eye (principal); I12.9 Hypertensive chronic kidney disease with stage 1 through stage 4 chronic kidney disease, or unspecified chronic kidney disease; N18.31 Chronic kidney disease, stage 3a; E78.00 Pure hypercholesterolemia, unspecified; K21.9 Gastro-esophageal reflux disease without esophagitis; M19.042 Primary osteoarthritis, left hand; M19.041 Primary osteoarthritis, right hand
CPT/HCPCS: 99213; A9270; G0463